=== PATIENT | male | born 1955 | race Caucasian/White ===

== ENCOUNTER 2016-05-31 21:23 | Inpatient (IN) | payer OTHER ==
[2016-05-31] MEDS ORDERED: NS 0.9% 1000 ML* 2,100 ML IV ONE (22:21)
[2016-05-31] MEDS ORDERED: cefTRIAXone(*) 1 GM in NS 0.9% 50 ML* 50 ML IVPB ONE (22:21)
[2016-05-31 22:27] LABS: Hematocrit 36 % (42-52); Hemoglobin 11.9 g/dl (14.0-18.0); Mean Corpuscular HGB Conc 33 g/dl (31-36); Mean Corpuscular Hemoglobin 28 pg (27-31); Mean Corpuscular Volume 84 fL (80-94); Mean Platelet Volume 9 um3 (7.4-10.4); Red Blood Count 4.21 10^6/ul (4.0-5.4); Red Cell Distribution Width 14 % (10.5-15); White Blood Count 14.9 10^3/ul (3.5-10.8)
[2016-05-31 22:38] LABS: Urine Bacteria 2+ (Absent); Urine Bilirubin Negative (Negative); Urine Glucose Negative (Negative); Urine Nitrite Positive (Negative)
[2016-05-31 22:47] LABS: Albumin 3.7 g/dL (3.2-5.2); BUN/Creatinine Ratio 19.9 (8-20); Calcium 9.2 mg/dL (8.6-10.3); EGFR African American 65.7 (>60); EGFR Non-African American 51.1 (>60); Globulin 3.3 g/dL (2-4); Potassium 3.9 mmol/L (3.5-5.0); Total Bilirubin 0.5 mg/dL (0.2-1.0); Troponin I 0.01 ng/mL (<0.04)
--- NOTE | 2016-05-31 22:49 | RAD ---
INDICATION: Fever. COMPARISON: There are no prior studies available for comparison. TECHNIQUE: A portable view of the chest was obtained. FINDINGS: Cardiac and mediastinal contours appear to be within normal limits. The lungs are underinflated. There are small infiltrates at both lung bases. No pleural effusion is seen. IMPRESSION: EXPIRATORY EXAM, SMALL BIBASILAR INFILTRATES.
[2016-05-31] MEDS ORDERED: Azithromycin IV(*) 500 MG in NS 0.9% 250 ML* 250 ML IVPB ONE (23:15)
[2016-06-01] MEDS ORDERED: Ondansetron INJ* 2 MG/ML VIAL IV PRN (01:35)
[2016-06-01] MEDS ORDERED: Acetaminophen TAB* 325 MG PO PRN (01:35)
[2016-06-01] MEDS ORDERED: NS 0.9% 1000 ML* 1,000 ML IV ONE (01:35)
[2016-06-01] MEDS ORDERED: Albuterol/Ipratropium NEB.SOL* Albuterol 2.5 MG/Ipratropium 0.5 MG 3 ML INH PRN (01:39)
[2016-06-01] MEDS ORDERED: Oxazepam CAP* 10 MG PO PRN (01:40)
[2016-06-01] MEDS ORDERED: traZODone TAB* 50 MG TAB PO PRN (01:41)
--- NOTE | 2016-06-01 03:57 | HP ---
ADMISSION HISTORY AND PHYSICAL: DATE OF ADMISSION: 06/01/16 PRIMARY CARE PROVIDER: None. SOURCE OF INFORMATION: History obtained from review of discharge medical records from [facility] and [facility] records. RELIABILITY: Fair. CHIEF COMPLAINT: [facility] for decreased blood pressure, increased heart rate and respiratory status, increased respiratory rate. HISTORY OF PRESENT ILLNESS: This is a 60-year-old man, recent admission to [facility] in [place] after being found down on the street, found with right intraparenchymal hemorrhage with intraventricular hemorrhage and hydrocephalus, status post EVD placement and removal, all thought secondary to hypertension as well as hospital course complicated by cerebral edema, cerebral herniation, uncontrolled hypertension, acute pulmonary edema, and urinary retention, [facility], whose records indicate that he was sent from there today for a decreased blood pressure, increased heart rate, increased respiratory rate. [facility]'s records indicate on presentation, his blood pressure 110/70, heart rate 114, respiratory rate 14, temperature of 101.4. The patient is awake, although unable to give a coherent history. When asked why he is in the hospital, he says he is here because he had a stroke. He does endorse cough, otherwise no other complaints. PAST MEDICAL HISTORY: Hypertensive intracerebral hemorrhage, hydrocephalus, cerebral edema, cerebral herniation, intraventricular hemorrhage, uncontrolled hypertension, alcohol abuse with alcohol withdrawal syndrome and delirium, acute pulmonary edema, right-sided nontraumatic intraventricular intracerebral hemorrhage, urinary retention. MEDICATIONS: From [facility] include: 1. DuoNeb every 8 hours as needed. 2. Flomax 0.4 mg in the evening. 3. Lisinopril 5 mg daily. 4. Metoprolol 25 mg twice daily. 5. Norvasc 5 mg daily. 6. Oxazepam 10 mg 3 times a day as needed. 7. Proscar 5 mg a day at bedtime. 8. Glycopyrrolate 1 tab 3 times a day as needed for secretion. 9. Thiamine 100 mg daily. 10. Trazodone 50 mg at bedtime as needed for sleep. ALLERGIES: No known drug allergies. FAMILY HISTORY: Unable to obtain. SOCIAL HISTORY: Unable to obtain. REVIEW OF SYSTEMS: Endorses cough, unreliable, likely secondary to the patient' s recent intracerebral hemorrhage. PHYSICAL EXAMINATION GENERAL: Lying in exposed in bed, interactive, in no apparent distress. VITAL SIGNS: In the emergency room, 107/64, respiratory rate , heart rate 107, T-max in the emergency room 101.9. HEENT: Oropharynx is clear. Has dry mucous membranes. LUNGS: Clear. HEART: Regular rate and rhythm. ABDOMEN: Soft, nontender, nondistended. EXTREMITIES: Warm and well perfused. He is A and O x2 to self and hospital, although do not know which hospital. Thinks it is 2018. NEUROLOGIC: His cranial nerves are largely intact. He has dense left-sided hemiparesis. DIAGNOSTIC STUDIES/LAB DATA: Labs reviewed: Notable for white blood cell count of 14.9, hemoglobin 11.9, BUN 28, creatinine 1.41, lactic acid 1.4. Urine positive for blood, nitrites, leuk esterase, white blood cells, and bacteria. Chest x-ray: Notable for small bibasilar infiltrates. ASSESSMENT AND PLAN: This is a 60-year-old man, past medical history as outlined above, presenting to the hospital with fever. On chest x-ray, evidence of pneumonia as well as urinalysis consistent with urinary tract infection. 1. Sepsis with high fever. Suspect pneumonia versus urinary tract infection. Additionally, check flu swab. He is receiving ceftriaxone in the emergency room , add on azithromycin, and continue tomorrow. Continue fluids. Continue normal saline. 2. Hypotension. Continue lisinopril and metoprolol. Hold amlodipine. 3. Urinary retention. Needs replacement of Jc catheter given urinary tract infection. Has failed removal at [facility], maintain here. 4. Intracerebral hemorrhage. Close attention to blood pressure. 5. FEN. Mechanical soft, nectar thick. 6. DVT prophylaxis, contraindicated in the setting of intracerebral hemorrhage. [id number]/[id number] #: [id number] [facility]NING HOSPITALPatrizia
[2016-06-01] MEDS ORDERED: NS 0.9% 1000 ML* 1,000 ML IV SCH (04:45)
[2016-06-01] MEDS: Omeprazole CAP* 20 MG PO SCH (05:14)
--- NOTE | 2016-06-01 06:55 | ED ---
Clementine, DoctorFlory, scribed for Isabel Elias MD on 06/01/16 at 0051 . Sepsis HPI - HPI Summary HPI Summary: 60 year old male arrived to [facility] c/o dizziness and fever after a recent change in urinary catheter. He reports a fever of 101 degrees F. Patient was minimally responsive to questions, limiting HPI. - History of Current Complaint Chief Complaint: EDFever Time Seen by Provider: 05/31/16 21:48 Stated Complaint: GENERAL ILLNESS,FEVER Hx Obtained From: Patient Hx From Patient Unobtainable Due To: Other - Level 5 Caveat - Pt not responsive to questions Onset Severity: Moderate Current Severity: Moderate Pain Intensity: 0 Pain Scale Used: 0-10 Numeric - Allergy/Home Medications Allergies/Adverse Reactions: Allergies Allergy/AdvReac Type Severity Reaction Status Date / Time No Known Allergies Allergy Verified 05/31/16 22:38 PMH/Surg Hx/FS Hx/Imm Hx Infectious Disease History: No Infectious Disease History: Denies: Traveled Outside the [place] in Last 30 Days - Social History Alcohol Use: Occasionally Substance Use Type: Reports: None Smoking Status (MU): Never Smoked Tobacco Review of Systems - ROS Summary Review of Systems Summary: Level 5 Caveat - Pt not responsive to questions Positive: Fever All Other Systems Reviewed And Are Negative: No Physical Exam Triage Information Reviewed: Yes Vital Signs On Initial Exam: Initial Vitals Temp Pulse Resp BP Pulse Ox 101.9 F 105 34 103/73 95 05/31/16 22:23 05/31/16 22:23 05/31/16 22:23 05/31/16 22:23 05/31/16 22:23 Vital Signs Reviewed: Yes Appearance: Positive: Well-Appearing, No Pain Distress Skin: Positive: Warm, Skin Color Reflects Adequate Perfusion, Dry Eyes: Positive: EOMI, ERNESTO ENT: Positive: Pharynx normal, TMs normal Neck: Positive: Supple, Nontender Respiratory/Lung Sounds: Positive: Clear to Auscultation, Breath Sounds Present. Negative: Rales, Rhonchi, Wheezes Cardiovascular: Positive: Tachycardia Abdomen Description: Positive: Nontender, Soft Bowel Sounds: Positive: Present Musculoskeletal: Positive: Strength/ROM Intact. Negative: Edema Left, Edema Right Neurological: Positive: Sensory/Motor Intact, Alert, Oriented to Person Place, Time, CN Intact II-III Psychiatric: Positive: Affect/Mood Appropriate Diagnostics - Vital Signs Vital Signs Temp Pulse Resp BP Pulse Ox 05/31/16 22:37 93 05/31/16 22:23 101.9 F 105 34 103/73 95 - Laboratory Lab Results: Lab Results 05/31/16 05/31/16 05/31/16 Range/Units 22:15 22:15 22:15 WBC 14.9 H (3.5-10.8) 10^3/ul RBC 4.21 (4.0-5.4) 10^6/ul Hgb 11.9 L (14.0-18.0) g/dl Hct 36 L (42-52) % MCV 84 (80-94) fL MCH 28 (27-31) pg MCHC 33 (31-36) g/dl RDW 14 (10.5-15) % Plt Count 273 (150-450) 10^3/ul MPV 9 (7.4-10.4) um3 Neut % (Auto) 80.9 (38-83) % Lymph % (Auto) 9.9 L (25-47) % [place] % (Auto) 7.7 (1-9) % Eos % (Auto) 0.4 (0-6) % Baso % (Auto) 1.1 (0-2) % Absolute Neuts (auto) 12.0 H (1.5-7.7) 10^3/ul Absolute Lymphs (auto) 1.5 (1.0-4.8) 10^3/ul Absolute Monos (auto) 1.2 H (0-0.8) 10^3/ul Absolute Eos (auto) 0.1 (0-0.6) 10^3/ul Absolute Basos (auto) 0.2 (0-0.2) 10^3/ul Absolute Nucleated RBC 0 10^3/ul Nucleated RBC % 0 INR (Anticoag Therapy) 1.30 H (0.89-1.11) APTT 42.0 H (26.0-36.3) seconds Sodium (133-145) mmol/L Potassium (3.5-5.0) mmol/L Chloride (101-111) mmol/L Carbon Dioxide (22-32) mmol/L Anion Gap (2-11) mmol/L BUN (6-24) mg/dL Creatinine (0.67-1.17) mg/dL Est GFR ( Amer) (>60) Est GFR (Non-Af Amer) (>60) BUN/Creatinine Ratio (8-20) Glucose (70-100) mg/dL Lactic Acid (0.5-2.0) mmol/L Calcium (8.6-10.3) mg/dL Total Bilirubin (0.2-1.0) mg/dL AST (13-39) U/L ALT (7-52) U/L Alkaline Phosphatase (34-104) U/L Troponin I (<0.04) ng/mL Total Protein (6.4-8.9) g/dL Albumin (3.2-5.2) g/dL Globulin (2-4) g/dL Albumin/Globulin Ratio (1-3) Urine Color Yellow Urine Appearance Cloudy Urine pH 7.0 (5-9) Ur Specific [place] 1.020 (1.010-1.030) Urine Protein 2+(100 mg/dl) H (Negative) Urine Ketones Negative (Negative) Urine Blood 1+ H (Negative) Urine Nitrate Positive H (Negative) Urine Bilirubin Negative (Negative) Urine Urobilinogen Negative (Negative) Ur Leukocyte Esterase 3+ H (Negative) Urine WBC (Auto) 3+(>20/hpf) H (Absent) Urine RBC (Auto) 3+(>10/hpf) H (Absent) Urine Bacteria 2+ H (Absent) Hyaline Casts Present H (Absent) Urine Glucose Negative (Negative) 05/31/16 05/31/16 Range/Units 22:15 22:15 WBC (3.5-10.8) 10^3/ul RBC (4.0-5.4) 10^6/ul Hgb (14.0-18.0) g/dl Hct (42-52) % MCV (80-94) fL MCH (27-31) pg MCHC (31-36) g/dl RDW (10.5-15) % Plt Count (150-450) 10^3/ul MPV (7.4-10.4) um3 Neut % (Auto) (38-83) % Lymph % (Auto) (25-47) % [place] % (Auto) (1-9) % Eos % (Auto) (0-6) % Baso % (Auto) (0-2) % Absolute Neuts (auto) (1.5-7.7) 10^3/ul Absolute Lymphs (auto) (1.0-4.8) 10^3/ul Absolute Monos (auto) (0-0.8) 10^3/ul Absolute Eos (auto) (0-0.6) 10^3/ul Absolute Basos (auto) (0-0.2) 10^3/ul Absolute Nucleated RBC 10^3/ul Nucleated RBC % INR (Anticoag Therapy) (0.89-1.11) APTT (26.0-36.3) seconds Sodium 135 (133-145) mmol/L Potassium 3.9 (3.5-5.0) mmol/L Chloride 101 (101-111) mmol/L Carbon Dioxide 26 (22-32) mmol/L Anion Gap 8 (2-11) mmol/L BUN 28 H (6-24) mg/dL Creatinine 1.41 H (0.67-1.17) mg/dL Est GFR ( Amer) 65.7 (>60) Est GFR (Non-Af Amer) 51.1 (>60) BUN/Creatinine Ratio 19.9 (8-20) Glucose 109 H (70-100) mg/dL Lactic Acid 1.4 (0.5-2.0) mmol/L Calcium 9.2 (8.6-10.3) mg/dL Total Bilirubin 0.50 (0.2-1.0) mg/dL AST 12 L (13-39) U/L ALT 19 (7-52) U/L Alkaline Phosphatase 80 (34-104) U/L Troponin I 0.01 (<0.04) ng/mL Total Protein 7.0 (6.4-8.9) g/dL Albumin 3.7 (3.2-5.2) g/dL Globulin 3.3 (2-4) g/dL Albumin/Globulin Ratio 1.1 (1-3) Urine Color Urine Appearance Urine pH (5-9) Ur Specific [place] (1.010-1.030) Urine Protein (Negative) Urine Ketones (Negative) Urine Blood (Negative) Urine Nitrate (Negative) Urine Bilirubin (Negative) Urine Urobilinogen (Negative) Ur Leukocyte Esterase (Negative) Urine WBC (Auto) (Absent) Urine RBC (Auto) (Absent) Urine Bacteria (Absent) Hyaline Casts (Absent) Urine Glucose (Negative) Result Diagrams: 05/31/16 22:15 05/31/16 22:15 Lab Statement: Any lab studies that have been ordered have been reviewed, and results considered in the medical decision making process. - Radiology Chest X-Ray Radiology Interpretation Completed By: Radiologist - IMPRESSION: EXPIRATORY EXAM, SMALL BIBASILAR INFILTRATES. - EKG 22:22 Cardiac Rate: Tachycardia - 105 BPM EKG Rhythm: Sinus Tachycardia Ectopy: None EKG Comparison: Other - none to compare Course/Dx - Course Course Of Treatment: 60 yo male with fever , b/l infiltrates admitted by [facility] - Differential Dx/Clinical Impression Provider Diagnosis: Sepsis - Provider Notifications Discuss Care Of Patient With: 23:00 - discussed care of pt with Dr. Cooper ( hospitalist). Agrees to admit him. Discharge - Discharge Plan Condition: Guarded Disposition: ADMITTED TO [facility] The documentation as recorded by the marinaibDoctor palafox Tahera accurately reflects the service I personally performed and the decisions made by me, Isabel Elias MD.
[2016-06-01 07:26] LABS: Hematocrit 31 % (42-52); Hemoglobin 10.4 g/dl (14.0-18.0); Mean Corpuscular HGB Conc 33 g/dl (31-36); Mean Corpuscular Hemoglobin 28 pg (27-31); Mean Corpuscular Volume 85 fL (80-94); Mean Platelet Volume 9 um3 (7.4-10.4); Red Blood Count 3.65 10^6/ul (4.0-5.4); Red Cell Distribution Width 15 % (10.5-15); White Blood Count 13.3 10^3/ul (3.5-10.8)
[2016-06-01 08:12] LABS: BUN/Creatinine Ratio 18.3 (8-20); Calcium 8.3 mg/dL (8.6-10.3); EGFR African American 93.4 (>60); EGFR Non-African American 72.6 (>60); Potassium 3.8 mmol/L (3.5-5.0)
[2016-06-01] MEDS: Metoprolol Tartrate TAB* 25 MG PO SCH ×2 (08:58→20:43)
[2016-06-01] MEDS ORDERED: Tamsulosin CAP* 0.4 MG PO SCH (09:00)
[2016-06-01] MEDS ORDERED: Lisinopril TAB* 5 MG PO SCH (09:00)
--- NOTE | 2016-06-01 16:18 | PN ---
Subjective Date of Service: 06/01/16 Interval History: No subjective change. Not a very reliable historian. Objective Active Medications: Acetaminophen (Tylenol Tab*) 650 mg PO Q4H PRN PRN Reason: FEVER/PAIN Albuterol/Ipratropium (Duoneb (Albuterol 2.5 Mg/Ipratropium 0.5 Mg)) 1 neb INH Q6H PRN PRN Reason: SOB/WHEEZING Finasteride (Proscar Tab*) 5 mg PO BEDTIME JASEN Ceftriaxone Sodium 1,000 mg/ (Sodium Chloride) 50 mls @ 200 mls/hr IVPB Q24H JASEN Azithromycin 250 mg/ Sodium (Chloride) 250 mls @ 250 mls/hr IVPB Q24H JASEN Stop: 06/04/16 23:59 Metoprolol Tartrate (Lopressor Tab*) 25 mg PO BID [facility] Last Admin: 06/01/16 08:58 Dose: 25 mg Omeprazole (Prilosec Cap*) 20 mg PO 0600 [facility] Last Admin: 06/01/16 05:14 Dose: 20 mg Ondansetron HCl (Zofran Inj*) 4 mg IV Q4H PRN PRN Reason: NAUSEA/VOMITING Oxazepam (Serax Cap*) 10 mg PO Q8H PRN PRN Reason: ANXIETY Trazodone HCl (Desyrel Tab*) 50 mg PO BEDTIME PRN PRN Reason: ANXIETY Vital Signs 06/01/16 06/01/16 06/01/16 01:56 02:54 03:56 Temperature 100.9 F 98.0 F Pulse Rate 106 101 Respiratory 22 20 20 Rate Blood Pressure 99/60 114/67 (mmHg) O2 Sat by Pulse 94 94 Oximetry 06/01/16 06/01/16 07:20 08:00 Temperature 98.1 F Pulse Rate 80 Respiratory 20 18 Rate Blood Pressure 111/71 (mmHg) O2 Sat by Pulse 92 92 Oximetry Oxygen Devices in Use Now: None Appearance: Alert, supine in bed. Neutral affect. Looks comfortable. Eyes: No Scleral Icterus Ears/Nose/Mouth/Throat: Clear Oropharnyx, Mucous Membranes Moist Neck: NL Appearance and Movements; NL JVP, No Thyroid Enlargement, Masses Respiratory: Symmetrical Chest Expansion and Respiratory Effort, Clear to Auscultation, Clear to Percussion Cardiovascular: NL Sounds; No Murmurs; No JVD, RRR, No Edema, - Extremities: No Edema, No Clubbing, Cyanosis, - Skin: No Rash or Ulcers, No Nodules or Sclerosis, - Neurological: NL Sensation - States he lives in [place]. He gave the present month as April. He gave his correct age. He did not know the name of this facility. , - - L hemiplegia Result Diagrams: 06/01/16 07:01 06/01/16 07:01 Additional Lab and Data: Lab Results 05/31/16 05/31/16 05/31/16 Range/Units 22:15 22:15 22:15 WBC 14.9 H (3.5-10.8) 10^3/ul RBC 4.21 (4.0-5.4) 10^6/ul Hgb 11.9 L (14.0-18.0) g/dl Hct 36 L (42-52) % MCV 84 (80-94) fL MCH 28 (27-31) pg MCHC 33 (31-36) g/dl RDW 14 (10.5-15) % Plt Count 273 (150-450) 10^3/ul MPV 9 (7.4-10.4) um3 Neut % (Auto) 80.9 (38-83) % Lymph % (Auto) 9.9 L (25-47) % [place] % (Auto) 7.7 (1-9) % Eos % (Auto) 0.4 (0-6) % Baso % (Auto) 1.1 (0-2) % Absolute Neuts (auto) 12.0 H (1.5-7.7) 10^3/ul Absolute Lymphs (auto) 1.5 (1.0-4.8) 10^3/ul Absolute Monos (auto) 1.2 H (0-0.8) 10^3/ul Absolute Eos (auto) 0.1 (0-0.6) 10^3/ul Absolute Basos (auto) 0.2 (0-0.2) 10^3/ul Absolute Nucleated RBC 0 10^3/ul Nucleated RBC % 0 INR (Anticoag Therapy) 1.30 H (0.89-1.11) APTT 42.0 H (26.0-36.3) seconds Sodium (133-145) mmol/L Potassium (3.5-5.0) mmol/L Chloride (101-111) mmol/L Carbon Dioxide (22-32) mmol/L Anion Gap (2-11) mmol/L BUN (6-24) mg/dL Creatinine (0.67-1.17) mg/dL Est GFR ( Amer) (>60) Est GFR (Non-Af Amer) (>60) BUN/Creatinine Ratio (8-20) Glucose (70-100) mg/dL Lactic Acid (0.5-2.0) mmol/L Calcium (8.6-10.3) mg/dL Total Bilirubin (0.2-1.0) mg/dL AST (13-39) U/L ALT (7-52) U/L Alkaline Phosphatase (34-104) U/L Troponin I (<0.04) ng/mL Total Protein (6.4-8.9) g/dL Albumin (3.2-5.2) g/dL Globulin (2-4) g/dL Albumin/Globulin Ratio (1-3) Urine Color Yellow Urine Appearance Cloudy Urine pH 7.0 (5-9) Ur Specific [place] 1.020 (1.010-1.030) Urine Protein 2+(100 mg/dl) H (Negative) Urine Ketones Negative (Negative) Urine Blood 1+ H (Negative) Urine Nitrate Positive H (Negative) Urine Bilirubin Negative (Negative) Urine Urobilinogen Negative (Negative) Ur Leukocyte Esterase 3+ H (Negative) Urine WBC (Auto) 3+(>20/hpf) H (Absent) Urine RBC (Auto) 3+(>10/hpf) H (Absent) Urine Bacteria 2+ H (Absent) Hyaline Casts Present H (Absent) Urine Glucose Negative (Negative) 05/31/16 05/31/16 Range/Units 22:15 22:15 WBC (3.5-10.8) 10^3/ul RBC (4.0-5.4) 10^6/ul Hgb (14.0-18.0) g/dl Hct (42-52) % MCV (80-94) fL MCH (27-31) pg MCHC (31-36) g/dl RDW (10.5-15) % Plt Count (150-450) 10^3/ul MPV (7.4-10.4) um3 Neut % (Auto) (38-83) % Lymph % (Auto) (25-47) % [place] % (Auto) (1-9) % Eos % (Auto) (0-6) % Baso % (Auto) (0-2) % Absolute Neuts (auto) (1.5-7.7) 10^3/ul Absolute Lymphs (auto) (1.0-4.8) 10^3/ul Absolute Monos (auto) (0-0.8) 10^3/ul Absolute Eos (auto) (0-0.6) 10^3/ul Absolute Basos (auto) (0-0.2) 10^3/ul Absolute Nucleated RBC 10^3/ul Nucleated RBC % INR (Anticoag Therapy) (0.89-1.11) APTT (26.0-36.3) seconds Sodium 135 (133-145) mmol/L Potassium 3.9 (3.5-5.0) mmol/L Chloride 101 (101-111) mmol/L Carbon Dioxide 26 (22-32) mmol/L Anion Gap 8 (2-11) mmol/L BUN 28 H (6-24) mg/dL Creatinine 1.41 H (0.67-1.17) mg/dL Est GFR ( Amer) 65.7 (>60) Est GFR (Non-Af Amer) 51.1 (>60) BUN/Creatinine Ratio 19.9 (8-20) Glucose 109 H (70-100) mg/dL Lactic Acid 1.4 (0.5-2.0) mmol/L Calcium 9.2 (8.6-10.3) mg/dL Total Bilirubin 0.50 (0.2-1.0) mg/dL AST 12 L (13-39) U/L ALT 19 (7-52) U/L Alkaline Phosphatase 80 (34-104) U/L Troponin I 0.01 (<0.04) ng/mL Total Protein 7.0 (6.4-8.9) g/dL Albumin 3.7 (3.2-5.2) g/dL Globulin 3.3 (2-4) g/dL Albumin/Globulin Ratio 1.1 (1-3) Urine Color Urine Appearance Urine pH (5-9) Ur Specific [place] (1.010-1.030) Urine Protein (Negative) Urine Ketones (Negative) Urine Blood (Negative) Urine Nitrate (Negative) Urine Bilirubin (Negative) Urine Urobilinogen (Negative) Ur Leukocyte Esterase (Negative) Urine WBC (Auto) (Absent) Urine RBC (Auto) (Absent) Urine Bacteria (Absent) Hyaline Casts (Absent) Urine Glucose (Negative) Assess/Plan/Problems-Billing Assessment: - Patient Problems (1) UTI (urinary tract infection) Current Visit: Yes Status: Acute Comment: Continue ceftriaxone and azith for now. (2) Urinary retention Current Visit: Yes Status: Acute Code(s): R33.9 - RETENTION OF URINE, UNSPECIFIED SNOMED Code(s): 893310113 Comment: Hx of failing voiding trial at [facility]. No reason to continue tamsulosin. Jc changed 05/31. (3) Hx of intracranial hemorrhage Current Visit: Yes Status: Acute Code(s): Z86.79 - PERSONAL HISTORY OF OTHER DISEASES OF THE CIRCULATORY SYSTEM SNOMED Code(s): 671674918 Comment: L hemiplegia, poor executive function and memory.
[2016-06-01] MEDS: Finasteride TAB* 5 MG PO SCH (20:43)
[2016-06-01] MEDS: Azithromycin IV(*) 250 MG in NS 0.9% 250 ML* 250 ML IVPB SCH (22:04)
[2016-06-01] MEDS: cefTRIAXone VIAL(*) 1,000 MG in NS 0.9% 50 ML* 50 ML IVPB SCH (23:58)
[2016-06-02] MEDS: Omeprazole CAP* 20 MG PO SCH (06:00)
[2016-06-02] MEDS: Metoprolol Tartrate TAB* 25 MG PO SCH ×2 (08:34→20:29)
--- NOTE | 2016-06-02 12:18 | PN ---
Subjective Date of Service: 06/02/16 Interval History: No c/o. Objective Active Medications: Acetaminophen (Tylenol Tab*) 650 mg PO Q4H PRN PRN Reason: FEVER/PAIN Albuterol/Ipratropium (Duoneb (Albuterol 2.5 Mg/Ipratropium 0.5 Mg)) 1 neb INH Q6H PRN PRN Reason: SOB/WHEEZING Finasteride (Proscar Tab*) 5 mg PO BEDTIME [facility] Last Admin: 06/01/16 20:43 Dose: 5 mg Ceftriaxone Sodium 1,000 mg/ (Sodium Chloride) 50 mls @ 200 mls/hr IVPB Q24H [facility] Last Admin: 06/01/16 23:58 Dose: 200 mls/hr Azithromycin 250 mg/ Sodium (Chloride) 250 mls @ 250 mls/hr IVPB Q24H [facility] Stop: 06/04/16 23:59 Last Admin: 06/01/16 22:04 Dose: 250 mls/hr Metoprolol Tartrate (Lopressor Tab*) 25 mg PO BID [facility] Last Admin: 06/02/16 08:34 Dose: 25 mg Omeprazole (Prilosec Cap*) 20 mg PO 0600 [facility] Last Admin: 06/02/16 06:00 Dose: 20 mg Ondansetron HCl (Zofran Inj*) 4 mg IV Q4H PRN PRN Reason: NAUSEA/VOMITING Oxazepam (Serax Cap*) 10 mg PO Q8H PRN PRN Reason: ANXIETY Trazodone HCl (Desyrel Tab*) 50 mg PO BEDTIME PRN PRN Reason: ANXIETY Vital Signs 06/01/16 06/01/16 06/01/16 13:23 15:22 19:19 Temperature 97.8 F 98.5 F Pulse Rate 72 72 101 Respiratory 16 22 19 Rate Blood Pressure 104/67 114/72 (mmHg) O2 Sat by Pulse 92 91 93 Oximetry 06/01/16 06/01/16 06/01/16 20:00 21:48 23:51 Temperature 98.3 F Pulse Rate 85 90 Respiratory 16 16 16 Rate Blood Pressure 132/69 (mmHg) O2 Sat by Pulse 96 97 96 Oximetry 06/02/16 06/02/16 06/02/16 07:16 08:00 10:26 Temperature 98.0 F Pulse Rate 80 69 Respiratory 18 18 16 Rate Blood Pressure 125/73 (mmHg) O2 Sat by Pulse 97 97 97 Oximetry Oxygen Devices in Use Now: None Appearance: Alert, partly up in bed. In good spirits. Looks comfortable. Eyes: No Scleral Icterus Neck: NL Appearance and Movements; NL JVP, No Thyroid Enlargement, Masses Respiratory: Symmetrical Chest Expansion and Respiratory Effort, Clear to Auscultation, Clear to Percussion Cardiovascular: NL Sounds; No Murmurs; No JVD, RRR, No Edema, - Extremities: No Edema, No Clubbing, Cyanosis, - Skin: No Rash or Ulcers, No Nodules or Sclerosis, - Neurological: NL Sensation - Again gave April as present month. Poor short- term memory. L arm contracted, no mvoluntary motion. L leg weak. Result Diagrams: 06/01/16 07:01 06/01/16 07:01 Additional Lab and Data: Lab Results 05/31/16 05/31/16 05/31/16 Range/Units 22:15 22:15 22:15 WBC 14.9 H (3.5-10.8) 10^3/ul RBC 4.21 (4.0-5.4) 10^6/ul Hgb 11.9 L (14.0-18.0) g/dl Hct 36 L (42-52) % MCV 84 (80-94) fL MCH 28 (27-31) pg MCHC 33 (31-36) g/dl RDW 14 (10.5-15) % Plt Count 273 (150-450) 10^3/ul MPV 9 (7.4-10.4) um3 Neut % (Auto) 80.9 (38-83) % Lymph % (Auto) 9.9 L (25-47) % [place] % (Auto) 7.7 (1-9) % Eos % (Auto) 0.4 (0-6) % Baso % (Auto) 1.1 (0-2) % Absolute Neuts (auto) 12.0 H (1.5-7.7) 10^3/ul Absolute Lymphs (auto) 1.5 (1.0-4.8) 10^3/ul Absolute Monos (auto) 1.2 H (0-0.8) 10^3/ul Absolute Eos (auto) 0.1 (0-0.6) 10^3/ul Absolute Basos (auto) 0.2 (0-0.2) 10^3/ul Absolute Nucleated RBC 0 10^3/ul Nucleated RBC % 0 INR (Anticoag Therapy) 1.30 H (0.89-1.11) APTT 42.0 H (26.0-36.3) seconds Sodium (133-145) mmol/L Potassium (3.5-5.0) mmol/L Chloride (101-111) mmol/L Carbon Dioxide (22-32) mmol/L Anion Gap (2-11) mmol/L BUN (6-24) mg/dL Creatinine (0.67-1.17) mg/dL Est GFR ( Amer) (>60) Est GFR (Non-Af Amer) (>60) BUN/Creatinine Ratio (8-20) Glucose (70-100) mg/dL Lactic Acid (0.5-2.0) mmol/L Calcium (8.6-10.3) mg/dL Total Bilirubin (0.2-1.0) mg/dL AST (13-39) U/L ALT (7-52) U/L Alkaline Phosphatase (34-104) U/L Troponin I (<0.04) ng/mL Total Protein (6.4-8.9) g/dL Albumin (3.2-5.2) g/dL Globulin (2-4) g/dL Albumin/Globulin Ratio (1-3) Urine Color Yellow Urine Appearance Cloudy Urine pH 7.0 (5-9) Ur Specific [place] 1.020 (1.010-1.030) Urine Protein 2+(100 mg/dl) H (Negative) Urine Ketones Negative (Negative) Urine Blood 1+ H (Negative) Urine Nitrate Positive H (Negative) Urine Bilirubin Negative (Negative) Urine Urobilinogen Negative (Negative) Ur Leukocyte Esterase 3+ H (Negative) Urine WBC (Auto) 3+(>20/hpf) H (Absent) Urine RBC (Auto) 3+(>10/hpf) H (Absent) Urine Bacteria 2+ H (Absent) Hyaline Casts Present H (Absent) Urine Glucose Negative (Negative) 05/31/16 05/31/16 Range/Units 22:15 22:15 WBC (3.5-10.8) 10^3/ul RBC (4.0-5.4) 10^6/ul Hgb (14.0-18.0) g/dl Hct (42-52) % MCV (80-94) fL MCH (27-31) pg MCHC (31-36) g/dl RDW (10.5-15) % Plt Count (150-450) 10^3/ul MPV (7.4-10.4) um3 Neut % (Auto) (38-83) % Lymph % (Auto) (25-47) % [place] % (Auto) (1-9) % Eos % (Auto) (0-6) % Baso % (Auto) (0-2) % Absolute Neuts (auto) (1.5-7.7) 10^3/ul Absolute Lymphs (auto) (1.0-4.8) 10^3/ul Absolute Monos (auto) (0-0.8) 10^3/ul Absolute Eos (auto) (0-0.6) 10^3/ul Absolute Basos (auto) (0-0.2) 10^3/ul Absolute Nucleated RBC 10^3/ul Nucleated RBC % INR (Anticoag Therapy) (0.89-1.11) APTT (26.0-36.3) seconds Sodium 135 (133-145) mmol/L Potassium 3.9 (3.5-5.0) mmol/L Chloride 101 (101-111) mmol/L Carbon Dioxide 26 (22-32) mmol/L Anion Gap 8 (2-11) mmol/L BUN 28 H (6-24) mg/dL Creatinine 1.41 H (0.67-1.17) mg/dL Est GFR ( Amer) 65.7 (>60) Est GFR (Non-Af Amer) 51.1 (>60) BUN/Creatinine Ratio 19.9 (8-20) Glucose 109 H (70-100) mg/dL Lactic Acid 1.4 (0.5-2.0) mmol/L Calcium 9.2 (8.6-10.3) mg/dL Total Bilirubin 0.50 (0.2-1.0) mg/dL AST 12 L (13-39) U/L ALT 19 (7-52) U/L Alkaline Phosphatase 80 (34-104) U/L Troponin I 0.01 (<0.04) ng/mL Total Protein 7.0 (6.4-8.9) g/dL Albumin 3.7 (3.2-5.2) g/dL Globulin 3.3 (2-4) g/dL Albumin/Globulin Ratio 1.1 (1-3) Urine Color Urine Appearance Urine pH (5-9) Ur Specific [place] (1.010-1.030) Urine Protein (Negative) Urine Ketones (Negative) Urine Blood (Negative) Urine Nitrate (Negative) Urine Bilirubin (Negative) Urine Urobilinogen (Negative) Ur Leukocyte Esterase (Negative) Urine WBC (Auto) (Absent) Urine RBC (Auto) (Absent) Urine Bacteria (Absent) Hyaline Casts (Absent) Urine Glucose (Negative) Microbiology and Other Data: Microbiology 06/01/16 13:20 Legionella Urinary Antigen - Final Urine Negative Legionella Streptococcus pneumoniae Ag Screen - Final Negative S. pneumo Antigen Assess/Plan/Problems-Billing Assessment: - Patient Problems (1) UTI (urinary tract infection) Current Visit: Yes Status: Acute Comment: Continue ceftriaxone and azith for now. E. coli >100,000 growing, sens pending. (2) Urinary retention Current Visit: Yes Status: Acute Code(s): R33.9 - RETENTION OF URINE, UNSPECIFIED SNOMED Code(s): 814203536 Comment: Hx of failing voiding trial at [facility]. No reason to continue tamsulosin. Jc changed 05/31. (3) Hx of intracranial hemorrhage Current Visit: Yes Status: Acute Code(s): Z86.79 - PERSONAL HISTORY OF OTHER DISEASES OF THE CIRCULATORY SYSTEM SNOMED Code(s): 670892463 Comment: L hemiplegia, poor executive function and memory.
[2016-06-02] MEDS: Finasteride TAB* 5 MG PO SCH (20:29)
[2016-06-03] MEDS: Azithromycin IV(*) 250 MG in NS 0.9% 250 ML* 250 ML IVPB SCH (00:18)
[2016-06-03] MEDS: cefTRIAXone VIAL(*) 1,000 MG in NS 0.9% 50 ML* 50 ML IVPB SCH (01:28)
[2016-06-03] MEDS: Omeprazole CAP* 20 MG PO SCH (05:05)
[2016-06-03 05:49] LABS: Hematocrit 38 % (42-52); Hemoglobin 12.9 g/dl (14.0-18.0); Mean Corpuscular HGB Conc 34 g/dl (31-36); Mean Corpuscular Hemoglobin 29 pg (27-31); Mean Corpuscular Volume 83 fL (80-94); Mean Platelet Volume 9 um3 (7.4-10.4); Red Blood Count 4.52 10^6/ul (4.0-5.4); Red Cell Distribution Width 14 % (10.5-15); White Blood Count 9.5 10^3/ul (3.5-10.8)
[2016-06-03 06:00] LABS: BUN/Creatinine Ratio 9.3 (8-20); Calcium 9.4 mg/dL (8.6-10.3); EGFR African American 101.2 (>60); EGFR Non-African American 78.7 (>60); Potassium 3.2 mmol/L (3.5-5.0)
[2016-06-03] MEDS: Metoprolol Tartrate TAB* 25 MG PO SCH (11:09)
--- NOTE | 2016-06-03 13:23 | DCNOTE ---
Subjective Date of Service: 06/03/16 Interval History: No c/o. Objective Active Medications: Acetaminophen (Tylenol Tab*) 650 mg PO Q4H PRN PRN Reason: FEVER/PAIN Albuterol/Ipratropium (Duoneb (Albuterol 2.5 Mg/Ipratropium 0.5 Mg)) 1 neb INH Q6H PRN PRN Reason: SOB/WHEEZING Amoxicillin (Amoxicillin Cap*) 500 mg PO TID [facility] Finasteride (Proscar Tab*) 5 mg PO BEDTIME [facility] Last Admin: 06/02/16 20:29 Dose: 5 mg Azithromycin 250 mg/ Sodium (Chloride) 250 mls @ 250 mls/hr IVPB Q24H [facility] Stop: 06/04/16 23:59 Last Admin: 06/03/16 00:18 Dose: 250 mls/hr Metoprolol Tartrate (Lopressor Tab*) 25 mg PO BID [facility] Last Admin: 06/03/16 11:09 Dose: 25 mg Omeprazole (Prilosec Cap*) 20 mg PO 0600 [facility] Last Admin: 06/03/16 05:05 Dose: 20 mg Ondansetron HCl (Zofran Inj*) 4 mg IV Q4H PRN PRN Reason: NAUSEA/VOMITING Oxazepam (Serax Cap*) 10 mg PO Q8H PRN PRN Reason: ANXIETY Trazodone HCl (Desyrel Tab*) 50 mg PO BEDTIME PRN PRN Reason: ANXIETY Vital Signs 06/02/16 06/02/16 06/02/16 15:07 20:00 23:28 Temperature 97.8 F 98.4 F Pulse Rate 80 105 Respiratory 16 18 18 Rate Blood Pressure 118/77 124/89 (mmHg) O2 Sat by Pulse 93 92 92 Oximetry 06/03/16 06/03/16 07:42 08:00 Temperature 97.9 F Pulse Rate 92 Respiratory 17 16 Rate Blood Pressure 150/103 (mmHg) O2 Sat by Pulse 97 97 Oximetry Oxygen Devices in Use Now: None Appearance: Alert, partly up in bed. Neutral affect. Looks comfortable. Eyes: No Scleral Icterus Ears/Nose/Mouth/Throat: Clear Oropharnyx, Mucous Membranes Moist Respiratory: Symmetrical Chest Expansion and Respiratory Effort, Clear to Auscultation, Clear to Percussion Cardiovascular: NL Sounds; No Murmurs; No JVD, RRR, No Edema, - Extremities: No Edema, No Clubbing, Cyanosis, - Skin: No Rash or Ulcers, No Nodules or Sclerosis, - Neurological: NL Sensation - L hemiparesis. Somewhat restless. No tremor. Result Diagrams: 06/03/16 05:19 06/03/16 05:19 Additional Lab and Data: Lab Results 05/31/16 05/31/16 05/31/16 Range/Units 22:15 22:15 22:15 WBC 14.9 H (3.5-10.8) 10^3/ul RBC 4.21 (4.0-5.4) 10^6/ul Hgb 11.9 L (14.0-18.0) g/dl Hct 36 L (42-52) % MCV 84 (80-94) fL MCH 28 (27-31) pg MCHC 33 (31-36) g/dl RDW 14 (10.5-15) % Plt Count 273 (150-450) 10^3/ul MPV 9 (7.4-10.4) um3 Neut % (Auto) 80.9 (38-83) % Lymph % (Auto) 9.9 L (25-47) % [place] % (Auto) 7.7 (1-9) % Eos % (Auto) 0.4 (0-6) % Baso % (Auto) 1.1 (0-2) % Absolute Neuts (auto) 12.0 H (1.5-7.7) 10^3/ul Absolute Lymphs (auto) 1.5 (1.0-4.8) 10^3/ul Absolute Monos (auto) 1.2 H (0-0.8) 10^3/ul Absolute Eos (auto) 0.1 (0-0.6) 10^3/ul Absolute Basos (auto) 0.2 (0-0.2) 10^3/ul Absolute Nucleated RBC 0 10^3/ul Nucleated RBC % 0 INR (Anticoag Therapy) 1.30 H (0.89-1.11) APTT 42.0 H (26.0-36.3) seconds Sodium (133-145) mmol/L Potassium (3.5-5.0) mmol/L Chloride (101-111) mmol/L Carbon Dioxide (22-32) mmol/L Anion Gap (2-11) mmol/L BUN (6-24) mg/dL Creatinine (0.67-1.17) mg/dL Est GFR ( Amer) (>60) Est GFR (Non-Af Amer) (>60) BUN/Creatinine Ratio (8-20) Glucose (70-100) mg/dL Lactic Acid (0.5-2.0) mmol/L Calcium (8.6-10.3) mg/dL Total Bilirubin (0.2-1.0) mg/dL AST (13-39) U/L ALT (7-52) U/L Alkaline Phosphatase (34-104) U/L Troponin I (<0.04) ng/mL Total Protein (6.4-8.9) g/dL Albumin (3.2-5.2) g/dL Globulin (2-4) g/dL Albumin/Globulin Ratio (1-3) Urine Color Yellow Urine Appearance Cloudy Urine pH 7.0 (5-9) Ur Specific [place] 1.020 (1.010-1.030) Urine Protein 2+(100 mg/dl) H (Negative) Urine Ketones Negative (Negative) Urine Blood 1+ H (Negative) Urine Nitrate Positive H (Negative) Urine Bilirubin Negative (Negative) Urine Urobilinogen Negative (Negative) Ur Leukocyte Esterase 3+ H (Negative) Urine WBC (Auto) 3+(>20/hpf) H (Absent) Urine RBC (Auto) 3+(>10/hpf) H (Absent) Urine Bacteria 2+ H (Absent) Hyaline Casts Present H (Absent) Urine Glucose Negative (Negative) 05/31/16 05/31/16 Range/Units 22:15 22:15 WBC (3.5-10.8) 10^3/ul RBC (4.0-5.4) 10^6/ul Hgb (14.0-18.0) g/dl Hct (42-52) % MCV (80-94) fL MCH (27-31) pg MCHC (31-36) g/dl RDW (10.5-15) % Plt Count (150-450) 10^3/ul MPV (7.4-10.4) um3 Neut % (Auto) (38-83) % Lymph % (Auto) (25-47) % [place] % (Auto) (1-9) % Eos % (Auto) (0-6) % Baso % (Auto) (0-2) % Absolute Neuts (auto) (1.5-7.7) 10^3/ul Absolute Lymphs (auto) (1.0-4.8) 10^3/ul Absolute Monos (auto) (0-0.8) 10^3/ul Absolute Eos (auto) (0-0.6) 10^3/ul Absolute Basos (auto) (0-0.2) 10^3/ul Absolute Nucleated RBC 10^3/ul Nucleated RBC % INR (Anticoag Therapy) (0.89-1.11) APTT (26.0-36.3) seconds Sodium 135 (133-145) mmol/L Potassium 3.9 (3.5-5.0) mmol/L Chloride 101 (101-111) mmol/L Carbon Dioxide 26 (22-32) mmol/L Anion Gap 8 (2-11) mmol/L BUN 28 H (6-24) mg/dL Creatinine 1.41 H (0.67-1.17) mg/dL Est GFR ( Amer) 65.7 (>60) Est GFR (Non-Af Amer) 51.1 (>60) BUN/Creatinine Ratio 19.9 (8-20) Glucose 109 H (70-100) mg/dL Lactic Acid 1.4 (0.5-2.0) mmol/L Calcium 9.2 (8.6-10.3) mg/dL Total Bilirubin 0.50 (0.2-1.0) mg/dL AST 12 L (13-39) U/L ALT 19 (7-52) U/L Alkaline Phosphatase 80 (34-104) U/L Troponin I 0.01 (<0.04) ng/mL Total Protein 7.0 (6.4-8.9) g/dL Albumin 3.7 (3.2-5.2) g/dL Globulin 3.3 (2-4) g/dL Albumin/Globulin Ratio 1.1 (1-3) Urine Color Urine Appearance Urine pH (5-9) Ur Specific [place] (1.010-1.030) Urine Protein (Negative) Urine Ketones (Negative) Urine Blood (Negative) Urine Nitrate (Negative) Urine Bilirubin (Negative) Urine Urobilinogen (Negative) Ur Leukocyte Esterase (Negative) Urine WBC (Auto) (Absent) Urine RBC (Auto) (Absent) Urine Bacteria (Absent) Hyaline Casts (Absent) Urine Glucose (Negative) Microbiology and Other Data: Microbiology 06/01/16 13:20 Legionella Urinary Antigen - Final Urine Negative Legionella Streptococcus pneumoniae Ag Screen - Final Negative S. pneumo Antigen Assess/Plan/Problems-Billing Assessment: - Patient Problems (1) UTI (urinary tract infection) Current Visit: Yes Status: Acute Comment: Complete tx with 5 days amoxicillin. E. coli >100,000 growing, sens all antibiotics tested. (2) Urinary retention Current Visit: Yes Status: Acute Code(s): R33.9 - RETENTION OF URINE, UNSPECIFIED SNOMED Code(s): 110228294 Comment: Hx of failing voiding trial at [facility]. No reason to continue tamsulosin. Jc changed 05/31. Probably could stop finasteride if Jc is permanent. (3) Hx of intracranial hemorrhage Current Visit: Yes Status: Acute Code(s): Z86.79 - PERSONAL HISTORY OF OTHER DISEASES OF THE CIRCULATORY SYSTEM SNOMED Code(s): 563717352 Comment: L hemiplegia, poor executive function and memory. Status and Disposition: Discharge to [facility] now.
--- NOTE | 2016-06-03 13:25 | PN ---
Progress Note - Progress Note Note: Time spent on discharge 45 minutes.
[2016-06-03] MEDS ORDERED: Amoxicillin CAP* 500 MG PO SCH (14:00)
--- NOTE | 2016-06-03 15:27 | TRS ---
TRANSFER SUMMARY: DATE OF ADMISSION: 06/01/16 DATE OF TRANSFER: 06/03/16 HISTORY: This 60-year-old man was sent from [facility] for low blood pressure , high heart rate, and increased respiratory rate. The patient himself gives very little history. He was thought to have sepsis, was started on ceftriaxone and azithromycin. He had urinary retention and had had his catheter changed at [facility]; I believe it was changed on the day he arrived here as well. His urine grew out greater than 100,000 E. coli sensitive to all antibiotics tested. He will complete his antibiotic treatment with amoxicillin 500 mg t.i.d. for 5 days. I believe he is at his baseline mentally. FINAL DIAGNOSES: 1. Urinary tract infection with sepsis. 2. Urinary retention. 3. History of intracranial hemorrhage with residual left hemiparesis. MEDICATIONS ON TRANSFER: 1. Acetaminophen 650 mg every 4 hours p.r.n. 2. DuoNeb every 6 hours p.r.n. 3. Amoxicillin 500 mg t.i.d. for 5 days. 4. Finasteride 5 mg at bedtime. 5. Metoprolol 25 mg b.i.d. 6. Omeprazole 20 mg daily. 7. Oxazepam 10 mg every 8 hours p.r.n. anxiety. 8. Trazodone 50 mg at bedtime p.r.n. [id number]/[facility] #: [id number] MTDD
[2016-06-03 16:22] VITALS: BP 113/91
== END 2016-06-03 17:15 | DRG 720 ==
LOC: ED 21:23 → MED 06-01 01:52
PROVIDERS: ADMIT Internal Medicine; ATTEND Internal Medicine
DX: A41.9 Sepsis, unspecified organism (principal); I69.254 Hemiplegia and hemiparesis following other nontraumatic intracranial hemorrhage affecting left non-dominant side; I10 Essential (primary) hypertension; N39.0 Urinary tract infection, site not specified; R33.9 Retention of urine, unspecified; B96.20 Unspecified Escherichia coli [E. coli] as the cause of diseases classified elsewhere; F10.10 Alcohol abuse, uncomplicated
CPT/HCPCS: 36415; 71010; 80048; 80053; 81003; 81015; 83605; 84484; 85025; 85610; 85730; 87040; 87077; 87086; 87186; 87502; 87641; 87899; 93005; A9270-GY; J0456; J0696

== ENCOUNTER 2016-07-28 16:17 | Inpatient (IN) | payer OTHER ==
--- NOTE | 2016-07-28 17:42 | RAD ---
INDICATION: Fever. COMPARISON: Comparison is made with a prior testicular study from May 31, 2016. TECHNIQUE: A portable view of the chest was obtained. FINDINGS: Cardiac and mediastinal contours appear to be within normal limits. The lungs are underinflated. There is a small left basilar infiltrate. No pleural effusion is seen. IMPRESSION: THE LUNGS ARE UNDERINFLATED. THERE IS A SMALL LEFT BASILAR INFILTRATE.
[2016-07-28] MEDS ORDERED: Cefepime(*) 2 GM in NS 0.9% 50 ML* 50 ML IVPB ONE (18:35)
[2016-07-28] MEDS ORDERED: Ciprofloxacin 400MG IVPREMIX(* 400 MG/200 ML BAG IVPB ONE (18:35)
[2016-07-28] MEDS ORDERED: NS 0.9% 50 ML* 0 ML ONE ×2 (18:48→20:27)
[2016-07-28 19:12] LABS: Hematocrit 44 % (42-52); Hemoglobin 14.7 g/dl (14.0-18.0); Mean Corpuscular HGB Conc 33 g/dl (31-36); Mean Corpuscular Hemoglobin 28 pg (27-31); Mean Corpuscular Volume 84 fL (80-94); Mean Platelet Volume 9 um3 (7.4-10.4); Red Blood Count 5.28 10^6/ul (4.0-5.4); Red Cell Distribution Width 15 % (10.5-15); White Blood Count 23.7 10^3/ul (3.5-10.8)
[2016-07-28 19:19] LABS: Add Diff/Slide Review? Slide Review Added; Comments Flag Yes
[2016-07-28 19:26] LABS: Urine Bacteria Absent (Absent); Urine Bilirubin Negative (Negative); Urine Glucose 2+(150 mg/dL) (Negative); Urine Nitrite Negative (Negative)
[2016-07-28 19:28] LABS: BUN/Creatinine Ratio 15.8 (8-20); Calcium 10.3 mg/dL (8.6-10.3); EGFR African American 37.7 (>60); EGFR Non-African American 29.3 (>60); Globulin 3.9 g/dL (2-4); Potassium 4.1 mmol/L (3.5-5.0); Total Bilirubin 0.5 mg/dL (0.2-1.0); Total Protein 7.9 g/dL (6.4-8.9)
--- NOTE | 2016-07-28 20:18 | RAD ---
INDICATION: Hematuria. COMPARISON: There are no prior studies available for comparison. TECHNIQUE: Multiple real-time images of the kidneys were obtained. FINDINGS: The kidneys are normal in size shape and echogenicity. The right kidney measured 9.6 x 5.4 x 4.9 cm and the left kidney measured 9.8 x 5.7 x 5.7 cm. No significant focal abnormality or hydronephrosis was present. Images of the urinary bladder limited. There appears to be a catheter and air present within the bladder. IMPRESSION: 1. NORMAL STUDY OF THE KIDNEYS. 2. THERE APPEARS TO BE A CATHETER AND AIR WITHIN THE URINARY BLADDER.
[2016-07-28] MEDS ORDERED: NS 0.9% 1000 ML* 1,000 ML IV SCH (20:45)
--- NOTE | 2016-07-28 21:07 | RAD ---
INDICATION: Hematuria sepsis, area in the bladder. COMPARISON: Comparison is made with a prior renal ultrasound from October 28, 2016. TECHNIQUE: A CT scan of the abdomen and pelvis was performed without intravenous or oral contrast. Contiguous axial sections were obtained from the lung bases through the symphysis pubis. Images were reconstructed in the coronal and sagittal planes. FINDINGS: There are small infiltrates present dependently at both lung bases suggestive of atelectasis. No pleural effusion is present. The liver is mildly enlarged without significant focal abnormality on this noncontrast study. No calcified gallstones are seen. The spleen appears within normal limits in size. The pancreas is also within normal limits. The adrenal glands and kidneys are normal in size. There is a small 2 x 5 mm area of calcification in the posterior peripheral right kidney. There is mild prominence of the calyces and renal pelvises on both sides. No renal or ureteral calculi are seen. There is a Jc catheter within the urinary bladder. There is a small area of calcification adjacent to the catheter balloon. There is air within the urinary bladder. The bladder is contracted and the bladder wall appears thickened measuring approximately 1.2 cm in thickness. There is interstitial stranding and fluid around the urinary bladder. These findings are suspicious for cystitis, recommend clinical correlation. The prostate gland appears enlarged measuring 5.8 cm in transverse dimension. The abdominal aorta is ectatic. There is mild calcific plaque present. No significant enlarged retroperitoneal lymph nodes are seen. The stomach is mildly distended with fluid. The small bowel and colon appear nondistended. The appendix is within normal limits. There is no evidence for diverticulitis or colitis. There is a trace amount of free intraperitoneal fluid in the paracolic gutters. No free intraperitoneal air is seen. No significant focal osseous abnormality is seen. IMPRESSION: THERE IS DIFFUSE THICKENING OF THE WALL OF THE URINARY BLADDER WITH INTERSTITIAL STRANDING AND FLUID AROUND THE URINARY BLADDER SUGGESTIVE OF CYSTITIS. RECOMMEND CLINICAL CORRELATION.
[2016-07-28] MEDS ORDERED: Acetaminophen TAB* 325 MG PO PRN (22:44)
[2016-07-29] MEDS: cefTRIAXone VIAL(*) 1,000 MG in NS 0.9% 50 ML* 50 ML IVPB SCH ×2 (00:50→23:56)
[2016-07-29] MEDS: NS 0.9% 1000 ML* 1,000 ML IV SCH ×3 (05:24→20:44)
--- NOTE | 2016-07-29 07:51 | HP ---
HISTORY AND PHYSICAL: DATE OF ADMISSION: 07/28/16 CHIEF COMPLAINT: Sent over by [facility] because of urogenital problems and blood in his urine. HISTORY OF PRESENT ILLNESS: Please note the patient does not give any information whatsoever due to probable dementia and history of stroke and there is no information at all from the nursing facility that I can detect. Apparently, the patient was sent over for blood in his urine. While here he was worked up and found to have an elevated white count of 23.7, clearly hematuria, and renal ultrasound was negative, but a CAT scan that did show inflammation consistent with cystitis. He was also found to be in acute renal failure with an elevated creatinine of 2.28, and a lactic acid of 2.7. The patient appeared to be septic from UTI. PAST MEDICAL HISTORY: The patient has a past medical history significant for hypertensive intracerebral hemorrhage, hydrocephalus, cerebral edema, cerebral herniation, intraventricular hemorrhage, uncontrolled hypertension, alcohol abuse with alcohol withdrawal syndrome and delirium, acute pulmonary edema, right-sided nontraumatic intraventricular hemorrhage, urinary retention. CURRENT MEDICATIONS: 1. Vitamin D3 50,000 units q. month. 2. Acetaminophen 1000 mg every 8 hours as needed. 3. Mirtazapine 7.5 mg at bedtime. 4. Finasteride 5 mg at bedtime. 5. Metoprolol tartrate 25 mg twice daily. ALLERGIES: The patient has no known drug allergies. FAMILY HISTORY: Unable to obtain. SOCIAL HISTORY: Unable to obtain. REVIEW OF SYSTEMS: Unable to obtain from the patient because of his underlying confusion. PHYSICAL EXAMINATION GENERAL: A pleasant gentleman, lying in bed, in no acute distress. VITAL SIGNS: Temperature is 100.2 degrees, heart rate 104 beats per minute, respiratory rate 20 breaths per minute, pulse ox 96%, blood pressure 124/90. HEENT: Normocephalic and atraumatic. Pupils are equally round and reactive. Poor dentition. NECK: Supple. No JVD, bruits, palpable thyroid or lymphadenopathy. CHEST: Clear to auscultation and percussion bilaterally. CARDIOVASCULAR: S1, S2 appreciated. ABDOMEN: Positive bowel sounds in all 4 quadrants. Soft, nontender, and nondistended. No hepatosplenomegaly. EXTREMITIES: No cyanosis, clubbing, or edema. +2 peripheral pulses bilaterally. NEUROLOGIC: He is arousable, but not oriented. He moves all extremities. SKIN: No rashes or abnormalities. LABORATORY DATA: Sodium 140, potassium 4.1, chloride 104, CO2 of 22, BUN 36, creatinine 2.2, glucose is 155, lactic acid 3.7. White count 22.7, hemoglobin 14.7, hematocrit 44, platelets 352, INR 1.39. Urinalysis has +3 rbc's, +2 glucose. Influenza is negative. Chest x-ray was interpreted by Radiology as lungs are under-inflated. There is a small left basilar infiltrate. Renal ultrasound: Normal study of the kidneys. There appears to be a catheter and air within the urinary bladder. Abdominal and pelvic CT: There is diffuse thickening of the wall of the urinary bladder with interstitial stranding and fluid around the urinary bladder suggestive of cystitis, recommend clinical correlation. ASSESSMENT AND PLAN: 1. Sepsis, likely secondary to hemorrhagic cystitis. We will place him on Rocephin 1 g IV daily, normal saline at 100 cc an hour. Await culture results. His urinalysis is negative, but his CAT scan and other findings are consistent with a possible UTI. I highly doubt pneumonia, he has no other symptoms consistent with that. 2. Acute renal failure. We will hydrate the patient, likely prerenal, but we will see if he responds, if not it could be tubular necrosis. 3. Benign prostatic hypertrophy. Continue finasteride, may benefit from Flomax. 4. Hypertension. Blood pressure is borderline controlled, diastolic is somewhat high. Continue current regimen and adjust accordingly. 5. Depression. Continue Remeron. 6. DVT prophylaxis. Sequential compression stockings, with hematuria. 7. The patient is a full code. TIME SPENT: Over 75 minutes were spent on this H and P, more than 40 minutes of which was spent in direct [id number] contact with the patient in evaluation , physical exam, counseling, and coordination of care. [id number]/[facility] #: [id number] ANGELA
[2016-07-29 08:23] LABS: Hematocrit 37 % (42-52); Hemoglobin 12.3 g/dl (14.0-18.0); Mean Corpuscular HGB Conc 33 g/dl (31-36); Mean Corpuscular Hemoglobin 28 pg (27-31); Mean Corpuscular Volume 85 fL (80-94); Mean Platelet Volume 9 um3 (7.4-10.4); Red Blood Count 4.39 10^6/ul (4.0-5.4); Red Cell Distribution Width 15 % (10.5-15); White Blood Count 22.8 10^3/ul (3.5-10.8)
[2016-07-29 08:36] LABS: EGFR African American 70.9 (>60); EGFR Non-African American 55.1 (>60); Potassium 3.9 mmol/L (3.5-5.0)
[2016-07-29] MEDS: Metoprolol Tartrate TAB* 25 MG PO SCH ×2 (11:17→20:47)
--- NOTE | 2016-07-29 12:11 | PN ---
Subjective Date of Service: 07/29/16 Interval History: This is a 60 yo gentleman with a chronic indwelling Jc catheter, COPD, h/o CVA with residual dysphagia, HTN and GERD who presented with AMS and hematuria. Patient has been treated for sepsis secondary to catheter associated UTI. This am, patient is more alert. He reports that he is otherwise feeling well. Denies CP, SOB, abdominal pain, n/v. Objective Active Medications: Acetaminophen (Tylenol Tab*) 975 mg PO Q8H PRN PRN Reason: pain/fever Finasteride (Proscar Tab*) 5 mg PO BEDTIME [facility] Sodium Chloride (Ns 0.9% 1000 Ml*) 1,000 mls @ 150 mls/hr IV PER RATE [facility] Last Admin: 07/29/16 05:24 Dose: 150 mls/hr Ceftriaxone Sodium 1,000 mg/ (Sodium Chloride) 50 mls @ 200 mls/hr IVPB Q24H [facility] Last Admin: 07/29/16 00:50 Dose: 200 mls/hr Metoprolol Tartrate (Lopressor Tab*) 25 mg PO BID [facility] Last Admin: 07/29/16 11:17 Dose: Not Given Mirtazapine (Remeron Tab*) 7.5 mg PO BEDTIME [facility] Vital Signs: Temp Pulse Resp BP Pulse Ox 98.2 F 93 16 119/89 100 07/29/16 07:21 07/29/16 07:21 07/29/16 07:21 07/29/16 07:21 07/29/16 07:21 Oxygen Devices in Use Now: None Appearance: Patient is alert, in NAD. Seems slightly confused Respiratory: Symmetrical Chest Expansion and Respiratory Effort, Clear to Auscultation Cardiovascular: NL Sounds; No Murmurs; No JVD, RRR Abdominal: NL Sounds; No Tenderness; No Distention Extremities: No Edema Neurological: - - alert, mild confusion Result Diagrams: 07/29/16 08:08 07/29/16 08:08 Microbiology and Other Data: Microbiology 07/29/16 00:40 Nasal Screen MRSA (PCR)(IZABELLA) - Final Nasal Mrsa Negative Diagnostic Imaging: CT abd/pelvis - thickening of the urinary bladder and interstitial stranding Renal US - WNL CXR - small L sided infiltrated EKG - difficult to interpret, ? frequent ectopy, PACs/PVCs Assess/Plan/Problems-Billing Assessment: This is a 60 yo male with a h/o prior hemorrhagic CVA with persistent dysphagia , chronic indwelling Jc catheter for chronic urinary retention, GERD, HTN, COPD who presented with AMS and hematuria with a evidence of UTI. - Patient Problems (1) Encephalopathy Comment: Secondary to sepsis Resolved Resume diet at prior recommendations including soft diet and nectar thickened liquids (2) Sepsis Comment: Secondary to UTI qSOFA = 2 at admission with tachypnea and AMS Improving, cont ceftriaxone Urine and blood cultures pending (3) UTI (urinary tract infection) Comment: Catheter associated, with chronic indwelling Jc catheter Cont ceftriaxone Prior micro from UTI in May grew a pansensitive EColi (4) HERNAN (acute kidney injury) Comment: Secondary to sepsis, improving Cont IVF (5) Atrial ectopy Comment: EKG is difficult to interpret, but seems to indicated ectopy, both atrial and ventricular Repeat EKG, check Mg Transfer to telemetry floor for further evaluation (6) Urinary retention Comment: Chronic with indwelling Jc catheter Failed voiding trial at [facility] previously (7) COPD (chronic obstructive pulmonary disease) Comment: No acute exacerbation (8) GERD (gastroesophageal reflux disease) (9) H/O: CVA (cerebrovascular accident) Comment: Hemorrhagic CVA with residual dysphagia (10) Full code status (11) DVT prophylaxis Comment: SCDs Medical prophylaxis held due to profound hematuria Status and Disposition: Inpatient. Anticipate additional 2-3 day LOS.
--- NOTE | 2016-07-29 14:24 | ED ---
Karen Spring SooYoung, scribed for Orlando Fernandez MD on 07/28/16 at 1755 . GI/ HPI - HPI Summary HPI Summary: LEVEL 5 CAVEAT: HPI LIMITED DUE TO PT CONDITION, UNRELIABLE NARRATOR. A 60 y/o M TASHIA presents to ED with c/o hematuria. Associated sx: cramps in the groin. Denies SOB, cough, fever. Pt has a catheter in place. Pert PMHx: CVA. - History of Current Complaint Chief Complaint: EDUrogenitalProblems Time Seen by Provider: 07/28/16 17:22 Stated Complaint: BLOOD IN CATH Hx Obtained From: Patient Onset/Duration: Still Present Current Severity: None Pain Intensity: 0 - OUT OF 10 Location of Pain: Suprapubic, Groin - Additional Pertinent History Primary Care Physician: KAVITA - Allergy/Home Medications Allergies/Adverse Reactions: Allergies Allergy/AdvReac Type Severity Reaction Status Date / Time No Known Allergies Allergy Verified 05/31/16 22:38 Home Medications: Home Medications Acetaminophen [Non-Aspirin Extra Strengt] 1,000 mg PO Q8H PRN 07/28/16 [History Confirmed 07/28/16] Cholecalciferol [Vitamin D3] 50,000 unit PO SEE INSTRUCTIONS 07/28/16 [History Confirmed 07/28/16] Metoprolol Tartrate TAB* [Lopressor TAB*] 25 mg PO BID 07/28/16 [History Confirmed 07/28/16] Mirtazapine TAB* [Remeron TAB*] 7.5 mg PO BEDTIME 07/28/16 [History Confirmed ] PMH/Surg Hx/FS Hx/Imm Hx Previously Healthy: No - LEVEL 5 CAVEAT: PMHX LIMITED DUE TO PT CONDITION, UNRELIABLE NARRATOR. Cardiovascular History: Reports: Hx Hypertension GI History: Reports: Hx Gastroesophageal Reflux Disease History: Reports: Other Problems/Disorders - urinary retention, chronic indwelling quintanilla Neurological History: Reports: Other Neuro Impairments/Disorders - hydrocephalus Infectious Disease History: No Infectious Disease History: Denies: Traveled Outside the [place] in Last 30 Days - Family History Family History: LEVEL 5 CAVEAT: FHX/SHX LIMITED DUE TO PT CONDITION, UNRELIABLE NARRATOR. - Social History Lives: At [facility] Alcohol Use: Occasionally Alcohol Amount: Reports last drink was two months ago Hx Substance Use: No Substance Use Type: Reports: None Hx Tobacco Use: No Smoking Status (MU): Never Smoked Tobacco Review of Systems - ROS Summary Review of Systems Summary: LEVEL 5 CAVEAT: ROS LIMITED DUE TO PT CONDITION, UNRELIABLE NARRATOR. Positive: hematuria, other - POS: CRAMPS IN THE GROIN All Other Systems Reviewed And Are Negative: Yes Physical Exam - Summary Physical Exam Summary: Constitutional: Well-developed, Well-nourished, Alert. (-) Distressed Skin: Warm, Dry HENT: Normocephalic; Atraumatic Eyes: Conjunctiva normal Neck: Musculoskeletal ROM normal neck. (-) JVD, (-) Stridor, (-) Tracheal deviation Cardio: Rhythm regular, rate normal, Heart sounds normal; Intact distal pulses; The pedal pulses are 2+ and symmetric. Radial pulses are 2+ and symmetric. (-) Murmur Pulmonary/Chest wall: Effort normal. (-) Respiratory distress, (-) Wheezes, (-) Rales Abd: Soft, (-) Distension, (-) Guarding, (-) Rebound, SUPRAPUBIC TENDERNESS, NO CVA TENDERNESS. : BLADDER DISTENSION, DEIDRA BLOOD IN QUINTANILLA BAG. Musculoskeletal: (-) Edema Lymph: (-) Cervical adenopathy Neuro: Alert, Oriented x3 Psych: Mood and affect Normal Triage Information Reviewed: Yes Vital Signs On Initial Exam: Initial Vitals BP 135/93 07/28/16 16:40 Vital Signs Reviewed: Yes - [place] Coma Scale Coma Scale Total: 13 Diagnostics - Vital Signs Vital Signs Temp Pulse Resp BP Pulse Ox 07/28/16 17:00 128/105 07/28/16 16:51 109 95 07/28/16 16:44 100.2 F 103 20 124/90 96 07/28/16 16:42 112 94 07/28/16 16:41 100.2 F 135 16 136/95 96 07/28/16 16:40 135/93 - Laboratory Lab Results: Lab Results 07/28/16 07/28/16 07/28/16 Range/Units 18:45 18:45 18:45 WBC 23.7 H (3.5-10.8) 10^3/ul RBC 5.28 (4.0-5.4) 10^6/ul Hgb 14.7 (14.0-18.0) g/dl Hct 44 (42-52) % MCV 84 (80-94) fL MCH 28 (27-31) pg MCHC 33 (31-36) g/dl RDW 15 (10.5-15) % Plt Count 352 (150-450) 10^3/ul MPV 9 (7.4-10.4) um3 Neut % (Auto) 91.2 H (38-83) % Lymph % (Auto) 3.3 L (25-47) % [place] % (Auto) 5.3 (1-9) % Eos % (Auto) 0 (0-6) % Baso % (Auto) 0.2 (0-2) % Absolute Neuts (auto) 21.6 H (1.5-7.7) 10^3/ul Absolute Lymphs (auto) 0.8 L (1.0-4.8) 10^3/ul Absolute Monos (auto) 1.2 H (0-0.8) 10^3/ul Absolute Eos (auto) 0 (0-0.6) 10^3/ul Absolute Basos (auto) 0.1 (0-0.2) 10^3/ul Absolute Nucleated RBC 0 10^3/ul Nucleated RBC % 0 INR (Anticoag Therapy) 1.39 H (0.89-1.11) APTT 41.4 H (26.0-36.3) seconds Sodium 140 (133-145) mmol/L Potassium 4.1 (3.5-5.0) mmol/L Chloride 104 (101-111) mmol/L Carbon Dioxide 22 (22-32) mmol/L Anion Gap 14 H (2-11) mmol/L BUN 36 H (6-24) mg/dL Creatinine 2.28 H (0.67-1.17) mg/dL Est GFR ( Amer) 37.7 (>60) Est GFR (Non-Af Amer) 29.3 (>60) BUN/Creatinine Ratio 15.8 (8-20) Glucose 155 H (70-100) mg/dL Lactic Acid (0.5-2.0) mmol/L Calcium 10.3 (8.6-10.3) mg/dL Total Bilirubin 0.50 (0.2-1.0) mg/dL AST 12 L (13-39) U/L ALT 13 (7-52) U/L Alkaline Phosphatase 75 (34-104) U/L Total Protein 7.9 (6.4-8.9) g/dL Albumin 4.0 (3.2-5.2) g/dL Globulin 3.9 (2-4) g/dL Albumin/Globulin Ratio 1.0 (1-3) Urine Color Urine Appearance Urine pH (5-9) Ur Specific [place] (1.010-1.030) Urine Protein (Negative) Urine Ketones (Negative) Urine Blood (Negative) Urine Nitrate (Negative) Urine Bilirubin (Negative) Urine Urobilinogen (Negative) Ur Leukocyte Esterase (Negative) Urine WBC (Auto) (Absent) Urine RBC (Auto) (Absent) Urine Bacteria (Absent) Urine Glucose (Negative) Urine Ascorbic Acid Influenza A (Rapid) (Negative) Influenza B (Rapid) (Negative) 07/28/16 07/28/16 07/28/16 Range/Units 18:45 18:55 22:16 WBC (3.5-10.8) 10^3/ul RBC (4.0-5.4) 10^6/ul Hgb (14.0-18.0) g/dl Hct (42-52) % MCV (80-94) fL MCH (27-31) pg MCHC (31-36) g/dl RDW (10.5-15) % Plt Count (150-450) 10^3/ul MPV (7.4-10.4) um3 Neut % (Auto) (38-83) % Lymph % (Auto) (25-47) % [place] % (Auto) (1-9) % Eos % (Auto) (0-6) % Baso % (Auto) (0-2) % Absolute Neuts (auto) (1.5-7.7) 10^3/ul Absolute Lymphs (auto) (1.0-4.8) 10^3/ul Absolute Monos (auto) (0-0.8) 10^3/ul Absolute Eos (auto) (0-0.6) 10^3/ul Absolute Basos (auto) (0-0.2) 10^3/ul Absolute Nucleated RBC 10^3/ul Nucleated RBC % INR (Anticoag Therapy) (0.89-1.11) APTT (26.0-36.3) seconds Sodium (133-145) mmol/L Potassium (3.5-5.0) mmol/L Chloride (101-111) mmol/L Carbon Dioxide (22-32) mmol/L Anion Gap (2-11) mmol/L BUN (6-24) mg/dL Creatinine (0.67-1.17) mg/dL Est GFR ( Amer) (>60) Est GFR (Non-Af Amer) (>60) BUN/Creatinine Ratio (8-20) Glucose (70-100) mg/dL Lactic Acid 3.7 H* (0.5-2.0) mmol/L Calcium (8.6-10.3) mg/dL Total Bilirubin (0.2-1.0) mg/dL AST (13-39) U/L ALT (7-52) U/L Alkaline Phosphatase (34-104) U/L Total Protein (6.4-8.9) g/dL Albumin (3.2-5.2) g/dL Globulin (2-4) g/dL Albumin/Globulin Ratio (1-3) Urine Color Red A Urine Appearance Cloudy Urine pH 8.0 (5-9) Ur Specific [place] 1.022 (1.010-1.030) Urine Protein 3+(>=500 mg/dl) H (Negative) Urine Ketones Trace H (Negative) Urine Blood 2+ H (Negative) Urine Nitrate Negative (Negative) Urine Bilirubin Negative (Negative) Urine Urobilinogen Negative (Negative) Ur Leukocyte Esterase Negative (Negative) Urine WBC (Auto) Absent (Absent) Urine RBC (Auto) 3+(>10/hpf) H (Absent) Urine Bacteria Absent (Absent) Urine Glucose 2+(150 mg/dl) H (Negative) Urine Ascorbic Acid Not Reportable Influenza A (Rapid) Negative (Negative) Influenza B (Rapid) Negative (Negative) Result Diagrams: 07/29/16 08:08 07/29/16 08:08 Lab Statement: Any lab studies that have been ordered have been reviewed, and results considered in the medical decision making process. - Radiology CXR Xray Interpretation: Positive (See Comments) - IMPRESSION: THE LUNGS ARE UNDERINFLATED. THERE IS A SMALL LEFT BASILAR INFILTRATE. Radiology Interpretation Completed By: Radiologist - Ultrasound No standard instances Ultrasound Interpretation: Positive (See Comments) - RENAL U/S, REPORT PENDING, SEE [facility]. Ultrasound Interpretation Completed By: Radiologist Re-Evaluation - Re-Evaluation 1 Re-Evaluation Time: 18:34 Change: Improved Comment: Upon reeval: pink tinged urine, large amounts of deidra blood with irrigation. Abd less tender with palpation. GIGU Course/Dx - Course Course Of Treatment: Pt is a 60 y/o M BIBA from [facility] presenting with hematuria. Pt is an unreliable narrator. PE found suprapubic tenderness, bladder distension, and blood in quintanilla bag. Pt given Cefepime, Cipro, fluids in ED. CXR shows "THE LUNGS ARE UNDERINFLATED. THERE IS A SMALL LEFT BASILAR INFILTRATE." RENAL U/S pending at shift change. Spoke with hospitalist, will admit. - Diagnoses Provider Diagnoses: Hemorrhagic cystitis, Sepsis, Delirium - Physician Notifications Discussed Care Of Patient With: Dr. Link, hospitalist Time Discussed With Above Provider: 19:01 Instructed by Provider To: Admit As Inpatient Discharge - Discharge Plan Condition: Fair Disposition: ADMITTED TO [facility] The documentation as recorded by the Karen storey SooYoung accurately reflects the service I personally performed and the decisions made by me, Orlando Fernandez MD.
[2016-07-29] MEDS: Mirtazapine TAB* 15 MG PO SCH (20:45)
[2016-07-29] MEDS: Finasteride TAB* 5 MG PO SCH (20:47)
[2016-07-30] MEDS: NS 0.9% 1000 ML* 1,000 ML IV SCH (03:44)
--- NOTE | 2016-07-30 08:58 | PN ---
Subjective Date of Service: 07/30/16 Interval History: Patient is much more alert and conversant. He had a loose BM this am and one yesterday. He denies abd pain, n/v. Appetite is good. Denies CP, SOB, palpitations. Objective Active Medications: Acetaminophen (Tylenol Tab*) 975 mg PO Q8H PRN PRN Reason: pain/fever Finasteride (Proscar Tab*) 5 mg PO BEDTIME [facility] Last Admin: 07/29/16 20:47 Dose: 5 mg Ceftriaxone Sodium 1,000 mg/ (Sodium Chloride) 50 mls @ 200 mls/hr IVPB Q24H [facility] Last Admin: 07/29/16 23:56 Dose: 200 mls/hr Metoprolol Tartrate (Lopressor Tab*) 50 mg PO BID [facility] Mirtazapine (Remeron Tab*) 7.5 mg PO BEDTIME [facility] Last Admin: 07/29/16 20:45 Dose: 7.5 mg Vital Signs: Temp Pulse Resp BP Pulse Ox 98.3 F 73 24 128/91 98 07/30/16 07:24 07/30/16 07:24 07/30/16 07:24 07/30/16 07:24 07/30/16 07:24 Oxygen Devices in Use Now: None Appearance: Well appearing gentleman in NAD Neck: NL Appearance and Movements; NL JVP Respiratory: Symmetrical Chest Expansion and Respiratory Effort, Clear to Auscultation Cardiovascular: NL Sounds; No Murmurs; No JVD, RRR Abdominal: - - mild TTP, BS present, soft Extremities: No Edema Skin: No Rash or Ulcers Neurological: Alert and Oriented x 3, - - contracted LUE Result Diagrams: 07/29/16 08:08 07/29/16 08:08 Additional Lab and Data: . Microbiology and Other Data: Microbiology 07/29/16 00:40 Nasal Screen MRSA (PCR)(IZABELLA) - Final Nasal Mrsa Negative Diagnostic Imaging: CT abd/pelvis - thickening of the urinary bladder and interstitial stranding Renal US - WNL CXR - small L sided infiltrated EKG - difficult to interpret, ? frequent ectopy, PACs/PVCs Tele - freq PVCs/trigeminy Assess/Plan/Problems-Billing Assessment: This is a 60 yo male with a h/o prior hemorrhagic CVA with persistent dysphagia , chronic indwelling Jc catheter for chronic urinary retention, GERD, HTN, COPD who presented with AMS and hematuria with a evidence of UTI. - Patient Problems (1) Encephalopathy Comment: Secondary to sepsis Resolved Resume diet at prior recommendations including soft diet and nectar thickened liquids (2) Sepsis Comment: Secondary to UTI qSOFA = 2 at admission with tachypnea and AMS Improving, cont ceftriaxone Urine culture pending, blood cultures negative at 24 hours (3) UTI (urinary tract infection) Comment: Catheter associated, with chronic indwelling Jc catheter Cont ceftriaxone Prior micro from UTI in May grew a pansensitive EColi Jc exchanged and irrigated in ER Urine cx pending (4) HERNAN (acute kidney injury) Comment: Secondary to sepsis, improving Labs still pending for today Will stop IVF (5) Ventricular ectopy Comment: Freq PVCs/trigeminy on tele No electrolyte abnormalities No known ischemic heart disease Start with TTE and increase metoprolol, consider stress test for tomorrow depending on echo (6) Urinary retention Comment: Chronic with indwelling Jc catheter Failed voiding trial at [facility] previously (7) COPD (chronic obstructive pulmonary disease) Comment: No acute exacerbation (8) GERD (gastroesophageal reflux disease) (9) H/O: CVA (cerebrovascular accident) Comment: Hemorrhagic CVA with residual dysphagia and L sided weakness (10) Full code status (11) DVT prophylaxis Comment: SCDs Medical prophylaxis held due to profound hematuria Status and Disposition: Inpatient. Anticipate additional 1-2 day LOS.
[2016-07-30 09:25] LABS: Hematocrit 34 % (42-52); Hemoglobin 11.4 g/dl (14.0-18.0); Mean Corpuscular HGB Conc 33 g/dl (31-36); Mean Corpuscular Hemoglobin 28 pg (27-31); Mean Corpuscular Volume 85 fL (80-94); Mean Platelet Volume 9 um3 (7.4-10.4); Red Blood Count 4.05 10^6/ul (4.0-5.4); Red Cell Distribution Width 15 % (10.5-15); White Blood Count 16.3 10^3/ul (3.5-10.8)
[2016-07-30 09:38] LABS: BUN/Creatinine Ratio 19.8 (8-20); Calcium 8.6 mg/dL (8.6-10.3); EGFR African American 108.9 (>60); EGFR Non-African American 84.7 (>60); Potassium 3.4 mmol/L (3.5-5.0)
[2016-07-30 10:11] LABS: Magnesium 1.8 mg/dL (1.9-2.7)
[2016-07-30] MEDS: Metoprolol Tartrate TAB* 50 mg PO SCH ×2 (10:21→20:47)
[2016-07-30] MEDS ORDERED: Magnesium Sulfate 2 GM IV* 2 GM/50 ML BAG IVPB ONE (10:45)
--- NOTE | 2016-07-30 16:35 | ECHO ---
Patient: LOIDA LOVELACE Rec#: [id number] : 1955 Date: 07/30/2016 Age: 60y Height: 175.3 cm / 69.0 in Weight: 66.7 kg / 147.0 lbs Sex: M BSA: 1.8 Room#: [facility] Admit Date#: 07/28/2016 Type: Inpatient Referring: Michele Martinez Reading: Flavio Palafox MD Evp Managing Director: Leila Ludwig RN RDCS Transthoracic Echocardiogram Indication: Ventricular ectopy BP: 127/78 HR: 69 Rhythm: NSR with PACs Findings History: CVA, HTN, GERD, COPD, ETOH use Technical Comments: The study is technically limited due to the patient's history of COPD. Completed at 1625. Left Ventricle: The left ventricular chamber size is normal. Mild to moderate concentric left ventricular hypertrophy is observed. Global left ventricular wall motion and contractility are within normal limits. There is normal left ventricular systolic function. The estimated ejection fraction is 60-65%. There is an E to A reversal in the mitral valve flow pattern suggestive of diastolic dysfunction. Left Atrium: The left atrial chamber size is normal. Right Ventricle: The right ventricular cavity size is normal. The right ventricular global systolic function is low normal. Right Atrium: The right atrial cavity size is normal. A prominent chiari network is noted in the right atrium. There is evidence of an atrial septal aneurysm. Aortic Valve: The aortic valve is trileaflet. The aortic valve leaflets are mildly thickened. There is aortic annular calcification. There is moderate aortic regurgitation. There is no evidence of aortic stenosis. Mitral Valve: The mitral valve leaflets are mildly thickened. There is mild to moderate mitral regurgitation. There is no evidence of mitral stenosis. Tricuspid Valve: The tricuspid valve leaflets are normal. There is mild to moderate tricuspid regurgitation. There is evidence of mild pulmonary hypertension. Pulmonic Valve: The pulmonic valve appears normal. There is mild pulmonic regurgitation. Pericardium: There is no significant pericardial effusion. Aorta: There is mild dilatation of the ascending aorta.3.5 cm There is no dilatation of the aortic arch. There is no dilation of the aortic root. Pulmonary Artery: The main pulmonary artery appears normal. Venous: The inferior vena cava is dilated. There is less than 50% respiratory change in the inferior vena cava dimension. Summary: There was not any prior study for comparison. Conclusions Mild to moderate concentric left ventricular hypertrophy is observed. Global left ventricular wall motion and contractility are within normal limits. There is normal left ventricular systolic function. The estimated ejection fraction is 60-65%. The right ventricular global systolic function is low normal. A prominent chiari network is noted in the right atrium. There is evidence of an atrial septal aneurysm. The aortic valve leaflets are mildly thickened. There is moderate aortic regurgitation. There is mild to moderate mitral regurgitation. There is mild to moderate tricuspid regurgitation. There is evidence of mild pulmonary hypertension. There is no significant pericardial effusion. There is mild dilatation of the ascending aorta.3.5 cm Measurements Name Value Normal Range RVDdMajor (2D) 4 cm (2.2 - 4.4) RAd ISD 4CH 4.4 cm (3.4 - 4.9) RA (A4C)W 4.1 cm (2.9 - 4.6) IVSd (2D) 1.4 cm (0.6 - 1) LVPWd (2D) 1.1 cm (0.6 - 1) LVIDd (2D) 3.8 cm (3.6 - 5.4) LVIDs (2D) 1.3 cm - LV FS (2D) 39 % (25 - 45) Aortic Annulus 2.2 cm (1.4 - 2.6) Ao root diameter (2D) 3.2 cm (2.1 - 3.5) Ascending Ao 3.5 cm (2.1 - 3.4) Aortic arch 2.9 cm (1.8 - 3.4) LA dimension (AP) 2D 3.8 cm (2.3 - 3.8) LAd ISD 4CH 5.1 cm (2.9 - 5.3) LA ISD 4CH W 3.2 cm (2.5 - 4.5) Name Value Normal Range LA ESV SP 4CH (A/L) 43 ml - LA ESV SP 2CH (A/L) 73 ml - LA ESV BP (A/L) 59 ml - LA ESV BP (A/L) index 33 ml/m2 - LA ESV SP 4CH (MOD) 40 ml - LA ESV SP 2CH (MOD) 71 ml - Name Value Normal Range MV E-wave Vmax 0.58 m/sec - MV deceleration time 174 msec - MV A-wave Vmax 0.77 m/sec - MV E:A ratio 0.75 ratio - LV septal e' Vmax 0.08 m/sec - LV lateral e' Vmax 0.09 m/sec - LV E:e' septal ratio 7.3 ratio - LV E:e' lateral ratio 6.4 ratio - Name Value Normal Range AV Vmax 1.6 m/sec - AV VTI 29.9 cm - AV peak gradient 10 mmHg - AV mean gradient 6 mmHg - LVOT Vmax 1.4 m/sec - LVOT VTI 27.6 cm - LVOT peak gradient 9 mmHg - LVOT mean gradient 5 mmHg - RACHEL Vmax 0.85 m/sec - Name Value Normal Range TR Vmax 2.5 m/sec - TR peak gradient 25 mmHg - RAP 15 mmHg - RVSP 40 mmHg - IVC diameter 2.7 cm - Name Value Normal Range PV Vmax 0.84 m/sec -
[2016-07-30] MEDS: Finasteride TAB* 5 MG PO SCH (20:47)
[2016-07-30] MEDS: Mirtazapine TAB* 15 MG PO SCH (20:47)
[2016-07-30] MEDS: cefTRIAXone VIAL(*) 1,000 MG in NS 0.9% 50 ML* 50 ML IVPB SCH (23:41)
[2016-07-31 05:48] LABS: Hematocrit 33 % (42-52); Hemoglobin 11.3 g/dl (14.0-18.0); Mean Corpuscular HGB Conc 34 g/dl (31-36); Mean Corpuscular Hemoglobin 29 pg (27-31); Mean Corpuscular Volume 84 fL (80-94); Mean Platelet Volume 9 um3 (7.4-10.4); Red Blood Count 3.95 10^6/ul (4.0-5.4); Red Cell Distribution Width 15 % (10.5-15); White Blood Count 10.5 10^3/ul (3.5-10.8)
[2016-07-31 06:02] LABS: BUN/Creatinine Ratio 12.5 (8-20); Calcium 8.6 mg/dL (8.6-10.3); EGFR African American 113.2 (>60); Potassium 3.8 mmol/L (3.5-5.0)
[2016-07-31] MEDS ORDERED: Potassium Chloride LIQUID* 20 MEQ PACKET PO ONE (10:00)
[2016-07-31] MEDS ORDERED: Regadenoson* 0.4 MG/5 ML SYRINGE ONE (12:32)
[2016-07-31] MEDS ORDERED: Aminophylline IV* 25 MG/ML 10 ML VIAL ONE (12:32)
[2016-07-31] MEDS ORDERED: Metoprolol Tartrate TAB* 50 mg ONE (14:04)
[2016-07-31] MEDS: Metoprolol Tartrate TAB* 50 mg PO SCH ×2 (14:06→20:40)
--- NOTE | 2016-07-31 14:25 | RAD ---
Edited for charges. INDICATION: Hypertension and family history of heart disease COMPARISON: None TECHNIQUE: SPECT imaging was performed. Rest images were acquired following the intravenous injection of 10 millicuries of technetium 99m tetrofosmin at 0930 hours. At 1255 hours stress images were acquired following the intravenous administration of 25 millicuries of technetium 99m tetrofosmin. The patient received intravenous Lexiscan prior to the stress image acquisition. FINDINGS: There are no defects of the stress-induced or fixed nature. The cardiac chamber size is normal. There are no wall motion abnormalities. The ejection fraction is calculated at 47% during stress. IMPRESSION: No scintigraphic evidence of ischemia or infarction. ASSESSMENT: Low risk MTDD
--- NOTE | 2016-07-31 14:43 | PN ---
Subjective Date of Service: 07/31/16 Interval History: Patient offers no acute complaints. No CP, palpitations, abd pain, n/v. Blood from urine has cleared. Still having trigeminy on tele intermittently. Objective Active Medications: Acetaminophen (Tylenol Tab*) 975 mg PO Q8H PRN PRN Reason: pain/fever Finasteride (Proscar Tab*) 5 mg PO BEDTIME [facility] Last Admin: 07/30/16 20:47 Dose: 5 mg Ceftriaxone Sodium 1,000 mg/ (Sodium Chloride) 50 mls @ 200 mls/hr IVPB Q24H [facility] Last Admin: 07/30/16 23:41 Dose: 200 mls/hr Metoprolol Tartrate (Lopressor Tab*) 75 mg PO BID [facility] Mirtazapine (Remeron Tab*) 7.5 mg PO BEDTIME [facility] Last Admin: 07/30/16 20:47 Dose: 7.5 mg Vital Signs: Temp Pulse Resp BP Pulse Ox 98.0 F 41 20 141/83 95 07/31/16 11:33 07/31/16 11:33 07/31/16 11:33 07/31/16 11:33 07/31/16 11:33 Oxygen Devices in Use Now: None Appearance: Well appearing in NAD Cardiovascular: NL Sounds; No Murmurs; No JVD, RRR Abdominal: NL Sounds; No Tenderness; No Distention Extremities: No Edema Skin: No Rash or Ulcers Neurological: Alert and Oriented x 3 Result Diagrams: 07/31/16 05:30 07/31/16 05:30 Additional Lab and Data: . Microbiology and Other Data: Microbiology 07/29/16 00:40 Nasal Screen MRSA (PCR)(IZABELLA) - Final Nasal Mrsa Negative Diagnostic Imaging: CT abd/pelvis - thickening of the urinary bladder and interstitial stranding Renal US - WNL CXR - small L sided infiltrated EKG - difficult to interpret, ? frequent ectopy, PACs/PVCs Tele - freq PVCs/trigeminy Echo - Nl LVEF, mild-mod LVH, mod AR, mild pulm HTN Assess/Plan/Problems-Billing Assessment: This is a 60 yo male with a h/o prior hemorrhagic CVA with persistent dysphagia , chronic indwelling Jc catheter for chronic urinary retention, GERD, HTN, COPD who presented with AMS and hematuria with a evidence of UTI. - Patient Problems (1) Encephalopathy Comment: Secondary to sepsis Resolved Resume diet at prior recommendations including soft diet and nectar thickened liquids (2) Sepsis Comment: Secondary to UTI qSOFA = 2 at admission with tachypnea and AMS Improving, cont ceftriaxone Urine culture pending, blood cultures negative at 24 hours (3) UTI (urinary tract infection) Comment: Catheter associated, with chronic indwelling Jc catheter Micro growing only 25-50K Proteus He is clearly improving with Ceftriaxone and blood has cleared Jc exchanged and irrigated in ER Cont ceftriaxone (4) HERNAN (acute kidney injury) Comment: Secondary to sepsis, resolved (5) Ventricular ectopy Comment: Freq PVCs/trigeminy on tele No electrolyte abnormalities No known ischemic heart disease Echo and stress test unremarkable Will continue to titrate up BB, HR still averaging about 80 bpm (6) Urinary retention Comment: Chronic with indwelling Jc catheter Failed voiding trial at [facility] previously (7) COPD (chronic obstructive pulmonary disease) Comment: No acute exacerbation (8) GERD (gastroesophageal reflux disease) (9) H/O: CVA (cerebrovascular accident) Comment: Hemorrhagic CVA with residual dysphagia and L sided weakness (10) Full code status (11) DVT prophylaxis Comment: SCDs Medical prophylaxis held due to profound hematuria Status and Disposition: Inpatient. Anticipate likely dc tomorrow
[2016-07-31] MEDS: Finasteride TAB* 5 MG PO SCH (20:36)
[2016-07-31] MEDS: Mirtazapine TAB* 15 MG PO SCH (20:36)
[2016-07-31] MEDS: cefTRIAXone VIAL(*) 1,000 MG in NS 0.9% 50 ML* 50 ML IVPB SCH (23:51)
[2016-08-01] MEDS: Metoprolol Tartrate TAB* 50 mg PO SCH (08:32)
--- NOTE | 2016-08-01 09:13 | PN ---
Subjective Date of Service: 08/01/16 Interval History: Mr. Bowen states that he is feeling well this morning, much better than on admission. He denies chest pain, SOB, nausea or abdominal pain. Objective Active Medications: Acetaminophen (Tylenol Tab*) 975 mg PO Q8H PRN Finasteride (Proscar Tab*) 5 mg PO BEDTIME [facility] Ceftriaxone Sodium 1,000 mg/ (Sodium Chloride) 50 mls @ 200 mls/hr IVPB Q24H [facility] Metoprolol Tartrate (Lopressor Tab*) 75 mg PO BID [facility] Mirtazapine (Remeron Tab*) 7.5 mg PO BEDTIME [facility] Vital Signs 07/31/16 07/31/16 07/31/16 11:33 16:08 19:45 Temperature 98.0 F 98.8 F 98.3 F Pulse Rate 41 51 47 Respiratory 20 18 20 Rate Blood Pressure 141/83 148/84 123/64 (mmHg) O2 Sat by Pulse 95 97 94 Oximetry 07/31/16 07/31/16 08/01/16 20:00 23:44 03:50 Temperature 98.0 F 98.9 F Pulse Rate 81 94 Respiratory 20 20 20 Rate Blood Pressure 139/66 152/108 (mmHg) O2 Sat by Pulse 94 95 96 Oximetry 08/01/16 08/01/16 07:26 08:00 Temperature 98.2 F Pulse Rate 89 Respiratory 20 18 Rate Blood Pressure 130/76 (mmHg) O2 Sat by Pulse 93 93 Oximetry Oxygen Devices in Use Now: None Appearance: Male sitting up in bed eating breakfast in NAD Respiratory: Symmetrical Chest Expansion and Respiratory Effort, Clear to Auscultation Cardiovascular: NL Sounds; No Murmurs; No JVD, No Edema Abdominal: NL Sounds; No Tenderness; No Distention Extremities: No Edema Skin: No Rash or Ulcers Neurological: Alert and Oriented x 3, - - Left upper extremity weakness Nutrition: Taking PO's Result Diagrams: 07/31/16 05:30 07/31/16 05:30 Additional Lab and Data: . Microbiology and Other Data: Microbiology 07/29/16 00:40 Nasal Screen MRSA (PCR)(IZABELLA) - Final Nasal Mrsa Negative Diagnostic Imaging: CT abd/pelvis - thickening of the urinary bladder and interstitial stranding Renal US - WNL CXR - small L sided infiltrated EKG - difficult to interpret, ? frequent ectopy, PACs/PVCs Tele - freq PVCs/trigeminy Echo - Nl LVEF, mild-mod LVH, mod AR, mild pulm HTN Assess/Plan/Problems-Billing Assessment: This is a 60 yo male with a h/o prior hemorrhagic CVA with persistent dysphagia , chronic indwelling Jc catheter for chronic urinary retention, GERD, HTN, COPD who presented with AMS and UTI who was noted to have ventricular trigeminy. - Patient Problems (1) Sepsis Comment: Resolved. Secondary to UTI. qSOFA = 2 at admission with tachypnea and AMS. (2) UTI (urinary tract infection) Comment: Catheter associated, with chronic indwelling Jc catheter. Micro growing only 25-50K Proteus. He clearly improved with Ceftriaxone and blood has cleared. Jc exchanged and irrigated in ER. Will complete treatment with 10 days of bactrim. (3) HERNAN (acute kidney injury) Comment: Secondary to sepsis, resolved (4) Encephalopathy Comment: Secondary to sepsis. Resolved. Resume diet at prior recommendations including soft diet and nectar thickened liquids (5) COPD (chronic obstructive pulmonary disease) Comment: No acute exacerbation (6) H/O: CVA (cerebrovascular accident) Comment: Hemorrhagic CVA with residual dysphagia and L sided weakness (7) Urinary retention Comment: Chronic with indwelling Jc catheter. Failed voiding trial at [facility] previously (8) DVT prophylaxis Comment: SCDs. Medical prophylaxis held due to profound hematuria (9) Full code status Status and Disposition: Inpatient. Discharge to [facility].
--- NOTE | 2016-08-01 10:16 | DS ---
DATE OF ADMISSION: 07/28/2016. DATE OF DISCHARGE: 08/01/2016. ATTENDING PHYSICIAN: Dr. Dat Link* (dictation provided by Gilma Noonan NP) . PRIMARY DIAGNOSES: 1. Sepsis. 2. Urinary tract infection. SECONDARY DIAGNOSES: 1. Hypertensive intracerebral hemorrhage. 2. Hydrocephalus. 3. Cerebral edema. 4. Cerebral herniation. 5. Intraventricular hemorrhage. 6. Uncontrolled hypertension with history of ETOH abuse. 7. COPD. 8. Urinary retention with chronic indwelling Jc. MEDICATIONS AT THE TIME OF DISCHARGE: 1. Bactrim DS one tab p.o. b.i.d. times 10 days. 2. Cholecalciferol 50,000 units as directed. 3. Tylenol prn. 4. Mirtazapine at bedtime. 5. Finasteride 5 mg p.o. at bedtime. 6. Metoprolol tartrate 75 mg p.o. b.i.d. HOSPITAL COURSE: Mr. Bowen is a 60-year-old male who presented to the emergency room from [facility] on 07/29/2016 with complaint of blood in the urine. Please see the dictated history and physical from Dr. Joseph for complete details. In the emergency room, he was found to have hematuria with a white blood cell count of 23.7, acute kidney injury with a creatinine of 2.28, and a BUN of 36. His urine showed no overt evidence of infection. He was tachypneic with a respiratory rate up to 27 in the emergency room, therefore meeting criteria for qSOFA and sepsis. Mr. Bowen was admitted to the hospital. His work-up included a renal ultrasound which showed "normal study of the kidney, there appears to be a catheter and air within the urinary bladder." He also had an abdomen and pelvis CT which showed "there is diffuse thickening of the wall of the urinary bladder with interstitial stranding and fluid around the urinary bladder suggestive of cystitis, recommend clinical correlation." The patient was treated with Ceftriaxone with good resolution of his leukocytosis. His white blood cell count today is 10.5. He has had no fever. His tachypnea has resolved. He also had altered mental status on arrival which has also resolved. Mr. Bowen is noted to have ventricular trigeminy on telemetry monitoring. He had no electrolyte abnormalities and no known history of ischemic cardiac disease. The patient was evaluated with a transthoracic echocardiogram which showed "mild to moderate concentric left ventricular hypertrophy, global left ventricular wall motion and contractility are within normal limits, estimated ejection fraction is 60 to 65 percent, there is evidence of an atrial septal aneurysm, there is moderate aortic regurgitation, mild to moderate mitral regurgitation, mild to moderate tricuspid regurgitation, and evidence of mild pulmonary hypertension." The patient also went for a stress test which was read as low risk. The patient continues to have ventricular trigeminy, but he is asymptomatic, he has been found to have no evidence of coronary artery disease. Mr. Bowen is doing well today and he is medically stable to return to [facility] to complete treatment of his cystitis with Bactrim. DISPOSITION: To [facility]. ACTIVITY: As tolerated. FOLLOW-UP PLANS: Please follow-up per routine with providers at [facility] as needed. Approximately 60 minutes were spent in the discharge of this patient, more than half that time was spent with the patient at the bedside reviewing the events leading up this hospitalization, performing the physical exam, and reviewing the plan of care. GILMA NOONAN NP CC: [facility]* [id number]/[facility] #: [id number] ANGELA
[2016-08-01 12:28] VITALS: BP 112/77
== END 2016-08-01 16:55 | DRG 466 ==
LOC: ED 16:17 → UNDOADMIN 18:47 → MED 18:47 → MEDTELE 07-29 14:20
PROVIDERS: ADMIT Internal Medicine; ATTEND Internal Medicine
DX: T83.511A Infection and inflammatory reaction due to indwelling urethral catheter, initial encounter (principal); A41.9 Sepsis, unspecified organism; R65.20 Severe sepsis without septic shock; G93.41 Metabolic encephalopathy; N17.9 Acute kidney failure, unspecified; I69.154 Hemiplegia and hemiparesis following nontraumatic intracerebral hemorrhage affecting left non-dominant side; Y73.1 Therapeutic (nonsurgical) and rehabilitative gastroenterology and urology devices associated with adverse incidents; I08.3 Combined rheumatic disorders of mitral, aortic and tricuspid valves; I27.2 Other secondary pulmonary hypertension; I10 Essential (primary) hypertension; K21.9 Gastro-esophageal reflux disease without esophagitis; N39.0 Urinary tract infection, site not specified; F32.9 Major depressive disorder, single episode, unspecified; J44.9 Chronic obstructive pulmonary disease, unspecified; N40.1 Benign prostatic hyperplasia with lower urinary tract symptoms; R33.8 Other retention of urine; I49.1 Atrial premature depolarization; I49.3 Ventricular premature depolarization; I69.191 Dysphagia following nontraumatic intracerebral hemorrhage
CPT/HCPCS: 36415; 71010; 74176; 76775; 78452; 80048; 80053; 81003; 81015; 83605; 83735; 85025; 85610; 85730; 87040; 87077; 87086; 87184; 87186; 87502; 87641; 93005; 93017; 93306; A9270-GY; A9502; J0280; J0692; J0696; J0744; J2785